=== PATIENT | male | born 1930 | race Caucasian/White ===

== ENCOUNTER 2017-07-07 13:32 | Outpatient (CLI) | payer MEDICARE, BC, OTHER ==
[2017-07-07] MEDS ORDERED: ALBUTEROL NEB 2.5 MG/3 ML INH ONE (15:00)
== END 2017-07-07 13:33 | disposition home or self-care (01) ==
LOC: RT 13:32
PROVIDERS: ATTEND Specialist
DX: J44.9 Chronic obstructive pulmonary disease, unspecified (principal)
CPT/HCPCS: 94060; 94729; 94761; J7613

== ENCOUNTER 2017-09-04 04:34 | Outpatient (CLI) | payer MEDICARE, BC | END 2017-09-04 04:35 | disposition critical access hospital (66) | LOC: EMS 04:34 | PROVIDERS: ATTEND Surgery | DX: S01.01XA Laceration without foreign body of scalp, initial encounter (principal); W01.190A Fall on same level from slipping, tripping and stumbling with subsequent striking against furniture, initial encounter; Y92.099 Unspecified place in other non-institutional residence as the place of occurrence of the external cause | CPT/HCPCS: A0425; A0429 ==

== ENCOUNTER 2017-09-04 05:00 | Emergency (ER) | payer MEDICARE, BC ==
[2017-09-04] MEDS ORDERED: LIDOCAINE 1%-EPI 1:100000 20 ML MDV SUBQ STA (05:37)
[2017-09-04] MEDS ORDERED: BACITRACIN OINT TOP STA (05:37)
--- NOTE | 2017-09-04 05:45 | CT Report ---
EXAM: CT HEAD EXAM DATE: 09/04/2017 05:28 AM. CLINICAL HISTORY: Fall, head laceration, on aspirin. COMPARISON: None. TECHNIQUE: Multiaxial CT images were obtained from the foramen magnum to the vertex. Reformats: Coron al. IV contrast: None. In accordance with CT protocol optimization, one or more of the following dose reduction techniques w ere utilized for this exam: automated exposure control, adjustment of mA and/or KV based on patient s ize, or use of iterative reconstructive technique. FINDINGS: Parenchyma: No intraparenchymal hemorrhage. No evidence of mass, midline shift, or CT findings of acu te infarction. Burt-white differentiation is distinct. Diffuse chronic microangiopathic white matter changes are evident. Extraaxial Spaces: Normal for age. No subdural or epidural collections identified. Ventricles: The ventricles and cortical sulci are enlarged, consistent with age-related tissue loss. Sinuses and orbits: Imaged paranasal sinuses, orbits, and mastoids show no significant abnormality. Bones: No evidence of fracture or calvarial defect. Other: None. IMPRESSION: Generalized age-related cortical atrophic changes without evidence of acute intracranial abnormality. [facility] Referring Provider Line: [phone] SITE ID: [id number]
--- NOTE | 2017-09-04 05:52 | ED Physician Documentation ---
PD HPI HEAD INJURY - Stated complaint Stated Complaint: GLF HEAD LAC - Chief complaint Chief Complaint: Laceration - History obtained from History obtained from: Patient, EMS - History of Present Illness Mechanism of head injury: Fell, Laceration Where head injury occurred: Home Timing - onset: Today Location of injury: Back Quality of pain: Pain Associated symptoms: No: LOC, AMS Contributing factors: Anticoagulated Similar symptoms before: Has not had sx before Recently seen: Not recently seen - Additional information Additional information: Patient is a 86 year old male who is presenting to the emergency department after falling backwards and hitting his head on a dresser. Patient states that he got up and it was dark and he tripped on his jacket falling backwards landing on a dresser hitting his head. Patient denies LOC or other injuries but is on aspirin and does have a head laceration. Review of Systems Constitutional: denies: Fever Eyes: denies: Decreased vision Ears: denies: Ear pain, Drainage/discharge Nose: denies: Epistaxis Throat: reports: Reviewed and negative Cardiac: denies: Chest pain / pressure GI: denies: Nausea, Vomiting : reports: Reviewed and negative Skin: reports: Laceration (s) Musculoskeletal: denies: Neck pain, Back pain Neurologic: reports: Head injury. denies: Generalized weakness, Focal weakness , Syncope, Confused, Altered mental status, LOC Immunocompromised: denies: Immunocompromised PD PAST MEDICAL HISTORY - Past Medical History Past Medical History: Yes Cardiovascular: Congestive heart failure, Coronary artery disease Neuro: Dementia Other Past Medical History: AAA - Past Surgical History Past Surgical History: No - Present Medications Home Medications: Ambulatory Orders Medication Instructions Recorded Confirmed Aspirin [Aspirin EC] 1 tab PO DAILY 09/04/17 DULoxetine [Cymbalta] 60 mg PO DAILY 09/04/17 Gabapentin 1 tab PO DAILY 09/04/17 Glucosamine HCl/Chondroitin Mendez 1 tab PO DAILY 09/04/17 [Endur-Flex Sr Tablet] Ipratropium/Albuterol Sulfate 1 amp INH Q6H 09/04/17 [Iprat-Albut 0.5-3(2.5) mg/3 ml] Lisinopril 1 tab PO DAILY 09/04/17 Mirtazapine 1 tab PO DAILY 09/04/17 Pantoprazole [Protonix] 1 tab PO DAILY 09/04/17 QUEtiapine [SEROquel] 1 tab PO DAILY 09/04/17 Tiotropium [place] [Spiriva] 1 tab PO DAILY 09/04/17 - Allergies Allergies/Adverse Reactions: Allergies Allergy/AdvReac Type Severity Reaction Status Date / Time Penicillins Allergy Unknown Verified 09/04/17 05:09 Sulfa (Sulfonamide Allergy Unknown Verified 09/04/17 05:09 Antibiotics) - Social History Does the pt smoke?: No Smoking Status: Never smoker Does the pt drink ETOH?: No Does the pt have substance abuse?: No - POLST Patient has POLST: No PD ED PE NORMAL - Vitals Vital signs reviewed: Yes - General General: Alert and oriented X 3, No acute distress - HEENT HEENT: PERRL, Dentition benign - Neck Neck: No bony TTP - Cardiac Cardiac: RRR - Respiratory Respiratory: No respiratory distress - Abdomen Abdomen: Soft, Non tender, Non distended - Neuro Neuro: Alert and oriented X 3, No motor deficit, No sensory deficit, Normal speech Eye Opening: Spontaneous Motor: Obeys Commands Verbal: Oriented GCS Score: 15 - Psych Psych: Normal mood PD ED PE EXPANDED - HEENT HEENT: Head injury (6cm laceration on posterior scalp) Results - Vitals Vitals: Vital Signs - 24 hr 09/04/17 05:05 Temperature 36.4 C L Heart Rate 70 Respiratory 18 Rate Blood Pressure 168/84 H O2 Saturation 99 Oxygen O2 Source Room air - Rads (name of study) ct head Radiology: Final report received (no acute intracranial patholgy) Procedures - Laceration (location) posterior scalp Length in cm: 6 Wound type: Linear Neurovascular status: Sensory intact, Vascular intact Anesthesia: Lidocaine 2% with epi Wound Preparation: Irrigated copiously NS Skin layer closure: [place] Other: Patient tolerated well, No complications, Neurovascular intact, Dressing applied Complexity: Simple PD MEDICAL DECISION MAKING - ED course Complexity details: reviewed old records, reviewed results, re-evaluated patient , considered differential, d/w patient ED course: Patient was seen and examined at bedside. Patient was sent for imaging. When patient returned his laceration was repaired as described above. Patient's ct showed no acute pathology. Patient required no further work up and was stable for discharge with outpatient follow up. Departure - Departure Disposition: 01 Home, Self Care Clinical Impression: Laceration Condition: Good Instructions: ED Laceration Scalp Stitch Or Stap Follow-Up: CHRISTOPHER CHAPMAN [Primary Care Provider] - Within 1 week Comments: You should follow up with your doctor in 7-10 days for staple removal. You should keep the wound clean and dry and was with soap and water. You can apply topical antibiotics as needed. You may return to the emergency department at any time for new, worsening or uncontrollable symptoms.
[2017-09-04 07:42] VITALS: BP 134/73
== END 2017-09-04 07:42 | disposition home or self-care (01) ==
LOC: EDUNIT# → ED 05:00
DX: S01.01XA Laceration without foreign body of scalp, initial encounter (principal); W01.190A Fall on same level from slipping, tripping and stumbling with subsequent striking against furniture, initial encounter; Y92.009 Unspecified place in unspecified non-institutional (private) residence as the place of occurrence of the external cause; F03.90 Unspecified dementia, unspecified severity, without behavioral disturbance, psychotic disturbance, mood disturbance, and anxiety; I25.10 Atherosclerotic heart disease of native coronary artery without angina pectoris; I50.9 Heart failure, unspecified; Z79.82 Long term (current) use of aspirin
CPT/HCPCS: 12002; 70450; 99283; 99284; A9270

== ENCOUNTER 2017-09-04 07:32 | Outpatient (CLI) | payer MEDICARE, BC | END 2017-09-04 07:33 | disposition home or self-care (01) | LOC: EMS 07:32 | PROVIDERS: ATTEND Surgery | DX: S01.01XA Laceration without foreign body of scalp, initial encounter (principal); W19.XXXA Unspecified fall, initial encounter | CPT/HCPCS: A0425; A0428 ==

== ENCOUNTER 2019-08-18 18:03 | Outpatient (CLI) | payer MEDICARE, BC | END 2019-08-18 18:04 | disposition critical access hospital (66) | LOC: EMS 18:03 | PROVIDERS: ATTEND Surgery | DX: M54.9 Dorsalgia, unspecified (principal); W19.XXXA Unspecified fall, initial encounter; Y92.099 Unspecified place in other non-institutional residence as the place of occurrence of the external cause | CPT/HCPCS: A0425; A0429 ==

== ENCOUNTER 2019-08-18 18:22 | Emergency (ER) | payer MEDICARE, BC ==
--- NOTE | 2019-08-18 19:08 | ED Physician Documentation ---
PD HPI MAJOR TRAUMA - Stated complaint Stated Complaint: GLF, BACK PAIN - Chief complaint Chief Complaint: Trauma Ch/Bk - History obtained from History obtained from: Patient, EMS - History of Present Illness Mechanism of injury: Fell (88-year-old gentleman with dementia comes from an assisted living facility. Reportedly was found having fallen in another person's room. Reportedly was not unconscious. Patient complains of neck pain, no other injuries. He has been ambulatory.) Review of Systems Unable to obtain: Dementia PD PAST MEDICAL HISTORY - Past Medical History Cardiovascular: Congestive heart failure, Coronary artery disease - Past Surgical History Past Surgical History: No - Present Medications Home Medications: Ambulatory Orders Medication Instructions Recorded Confirmed Aspirin [Aspirin EC] 1 tab PO DAILY 09/04/17 DULoxetine [Cymbalta] 30 mg PO DAILY 09/04/17 Ipratropium/Albuterol Sulfate 1 amp INH Q6H PRN 09/04/17 [Iprat-Albut 0.5-3(2.5) mg/3 ml] Pantoprazole [Protonix] 20 mg PO DAILY 09/04/17 QUEtiapine [SEROquel] 25 mg PO QPM 09/04/17 ALPRAZolam [Alprazolam] 0.25 mg TID PRN 08/18/19 08/18/19 Albuterol Sulf [Ventolin Hfa 2 puffs Q4H PRN 08/18/19 08/18/19 Inhaler] Metoprolol Succinate 100 mg PO DAILY 08/18/19 08/18/19 Umeclidinium Dawson [Incruse 1 puffs DAILY 08/18/19 08/18/19 Ellipta] - Allergies Allergies/Adverse Reactions: Allergies Allergy/AdvReac Type Severity Reaction Status Date / Time Penicillins Allergy Unknown Verified 08/18/19 18:28 Sulfa (Sulfonamide Allergy Unknown Verified 08/18/19 18:28 Antibiotics) - Social History Does the pt smoke?: No Smoking Status: Never smoker Does the pt drink ETOH?: No Does the pt have substance abuse?: No - POLST Patient has POLST: No PD ED PE NORMAL - Vitals Vital signs reviewed: Yes - General General: Other (He is alert and oriented to person. He can tell he is in the hospital but not why. Does not know the date or his age. Does remember that he grew up in [place].) - HEENT HEENT: PERRL, EOMI - Neck Neck: Other (Very mild low C-spine tenderness) - Cardiac Cardiac: RRR, No murmur - Respiratory Respiratory: No respiratory distress, Clear bilaterally - Abdomen Abdomen: Non tender - Back Back: No spinal TTP - Derm Derm: Normal color, Warm and dry - Extremities Extremities: No deformity, No tenderness to palpate, Normal ROM s pain, No edema, No calf tenderness / cord, Other (All extremities were palpated throughout their length and nontender with full range of motion and painless at all major joints.) - Neuro Neuro: manager review 2-12 intact, No motor deficit, No sensory deficit Eye Opening: Spontaneous Motor: Obeys Commands Verbal: Confused GCS Score: 14 Results - Vitals Vitals: Vital Signs - 24 hr 08/18/19 08/18/19 18:27 20:48 Temperature 36.1 C L Heart Rate 76 60 Respiratory 18 18 Rate Blood Pressure 183/101 H 127/101 H O2 Saturation 100 100 Oxygen O2 Source Nasal cannula - Labs Labs: Laboratory Tests 08/18/19 08/18/19 08/18/19 19:19 19:19 19:19 WBC 8.4 RBC 4.51 L Hgb 13.7 L Hct 43.1 MCV 95.6 H MCH 30.4 MCHC 31.8 L RDW 13.3 Plt Count 201 MPV 9.7 Neut # (Auto) 5.9 Lymph # (Auto) 1.6 [place] # (Auto) 0.7 Eos # (Auto) 0.2 Baso # (Auto) 0.0 Absolute Nucleated RBC 0.00 Nucleated RBC % 0.0 PT 12.3 INR 1.1 Sodium 140 Potassium 4.6 Chloride 104 Carbon Dioxide 26 Anion Gap 10.0 BUN 19 Creatinine 1.4 H Estimated GFR (MDRD) 48 L Glucose 96 Calcium 8.6 Total Bilirubin 0.8 AST 15 ALT 10 Alkaline Phosphatase 64 Total Creatine Kinase 27 Total Protein 6.9 Albumin 3.6 Globulin 3.3 Albumin/Globulin Ratio 1.1 Lipase 55 H - Rads (name of study) CT of the head and cervical spine without IV contrast Radiology: EMP read contemporaneously (NAD, DJD/DDD) PD MEDICAL DECISION MAKING - ED course ED course: 88-year-old gentleman presents after an unwitnessed fall. No clear injuries may be some mild neck trauma. Relevant imaging was negative for acute issues. I updated the daughter by phone, she is in [place], but we discussed the method of getting back home and she felt that a taxi was not appropriate, she says that because of his dementia sometimes if she stops at a stop sign he will just jump out of the car. Departure - Departure Disposition: 01 Home, Self Care Clinical Impression: Fall Qualifiers: Encounter type: initial encounter Qualified Code(s): W19.XXXA - Unspecified fall, initial encounter Dementia Qualifiers: Dementia type: unspecified type Dementia behavioral disturbance: without behavioral disturbance Qualified Code(s): F03.90 - Unspecified dementia without behavioral disturbance Neck strain Qualifiers: Encounter type: initial encounter Qualified Code(s): S16.1XXA - Strain of muscle, fascia and tendon at neck level, initial encounter Condition: Good Record reviewed to determine appropriate education?: Yes Instructions: ED Dementia Caregiver Support Comments: He was seen here today after a fall, because he cannot really give a history, because of the fall is not known. Labs were only notable for a creatinine of 1.4 prior. I do not have any old labs on him, this could be new or could be old. Needs to be monitored over time. Your blood pressure was elevated today on check into the emergency department. This does not mean that you have hypertension, it is a common phenomenon to come to the emergency department and have elevated blood pressure. I recommend that you see your primary care physician within the week to have it rechecked when you are feeling better. Discharge Date/Time: 08/18/19 22:07
[2019-08-18 19:25] LABS: BASOPHILS % (AUTO) 0.5 %; EOSINOPHILS # (AUTO) 0.2 10^3/uL (0.0-0.7); HGB - HEMOGLOBIN 13.7 g/dL (14.0-18.0); LYMPHOCYTES # (AUTO) 1.6 10^3/uL (1.5-3.5); LYMPHOCYTES % (AUTO) 18.9 %; MEAN CORPUSCULAR HEMOGLOBIN 30.4 pg (27.0-31.0); MEAN CORPUSCULAR HGB CONC 31.8 g/dL (32.0-36.0); MEAN CORPUSCULAR VOLUME 95.6 fL (80.0-94.0); MEAN PLATELET VOLUME 9.7 fL (7.4-11.4); MONOCYTES # (AUTO) 0.7 10^3/uL (0.0-1.0); MONOCYTES % (AUTO) 8.3 %; NEUTROPHILS # (AUTO) 5.9 10^3/uL (1.5-6.6); NEUTROPHILS % (AUTO) 69.9 %; PLT - PLATELET COUNT 201 10^3/uL (130-450); RED BLOOD COUNT 4.51 10^6/uL (4.70-6.10); RED CELL DISTRIBUTION WIDTH 13.3 % (12.0-15.0); WHITE BLOOD COUNT 8.4 x10^3/uL (4.8-10.8)
[2019-08-18 19:29] LABS: INR 1.1 (0.8-1.2); PT - PROTHROMBIN TIME 12.3 secs (9.9-12.6)
[2019-08-18 19:38] LABS: ALBUMIN 3.6 g/dL (3.2-5.5); ALBUMIN/GLOBULIN RATIO 1.1 (1.0-2.2); BILIRUBIN,TOTAL 0.8 mg/dL (0.2-1.0); CALCIUM 8.6 mg/dL (8.5-10.3); CREATININE 1.4 mg/dL (0.6-1.2); TOTAL PROTEIN 6.9 g/dL (6.7-8.2)
--- NOTE | 2019-08-18 20:28 | CT Report ---
Reason: fall head inj Procedure Date: 08/18/2019 Accession Number: [id number] / [id number] Procedure: CT - HEAD WO CPT Code: Final Report FULL RESULT: EXAM: CT HEAD EXAM DATE: 08/18/2019 07:42 PM. CLINICAL HISTORY: Fall, head injury. COMPARISON: HEAD W/O 09/04/2017 5:23 AM. TECHNIQUE: Multiaxial CT images were obtained from the foramen magnum to the vertex. Reformats: Sagittal and coronal. IV contrast: None. In accordance with CT protocol optimization, one or more of the following dose reduction techniques were utilized for this exam: automated exposure control, adjustment of mA and/or KV based on patient size, or use of iterative reconstructive technique. FINDINGS: Parenchyma: No intraparenchymal hemorrhage. No evidence of mass, midline shift, or CT findings of infarction. Burt-white differentiation is distinct. Extraaxial Spaces: Enlarged cortical CSF spaces. No subdural or epidural collections identified. Ventricles: Normal in size and position. Sinuses and Orbits: Imaged paranasal sinuses, orbits, and mastoids show no significant abnormality. Bones: No evidence of fracture or calvarial defect. Other: None. IMPRESSION: No acute intracranial abnormality. [facility]
--- NOTE | 2019-08-18 20:30 | CT Report ---
Reason: fall neck pain Procedure Date: 08/18/2019 Accession Number: [id number] / [id number] Procedure: CT - CERVICAL SPINE WO CPT Code: Final Report FULL RESULT: EXAM: CT CERVICAL SPINE WITHOUT CONTRAST DATE: 08/18/2019 07:42 PM. HISTORY: Fall with neck pain. COMPARISONS: None. TECHNIQUE: Thin-section axial images were acquired of the cervical spine without contrast. Post-processing: Coronal and sagittal reformats. Other: None. In accordance with CT protocol optimization, one or more of the following dose reduction techniques were utilized for this exam: automated exposure control, adjustment of mA and/or KV based on patient size, or use of iterative reconstructive technique. FINDINGS: Alignment: There is 3 mm of anterolisthesis at C2-C3. There is 2-3 mm of retrolisthesis of C3 over C4. No significant scoliosis. Bones: Negative for an acute fracture. There is multilevel degenerative disease. There are periarticular ossifications around the dens. There is soft tissue ossification adjacent to the posterior C7 spinous process. Interspace Levels/Facets: C1-C2: There is moderate joint space narrowing with periarticular calcification and spurring. C2-C3: There is moderate disk height loss with right greater than left facet joint space narrowing associated with anterolisthesis. C3-C4: Moderate to severe disk height loss with endplate sclerosis and disk osteophyte spurring causing mild central spinal canal narrowing. C4-C5: Moderate disk height loss with chronic endplate degenerative disease and disk osteophyte spurring with mild central spinal canal narrowing. C5-C6: Moderate disk height loss with disk osteophyte spurring causing mild to moderate central spinal canal narrowing. C6-C7: Moderate to severe disk height loss with endplate sclerosis and disk calcification without significant stenosis. C7-T1: Mild disk height loss. Musculature: Normal. No fatty atrophy. Other: There is moderate apical emphysema. No apical pneumothorax. Trachea is midline. IMPRESSION: 1. Negative for an acute fracture. 2. 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 There is 3 mm C2-C3 anterolisthesis and 2-3 mm C3-C4 retrolisthesis. [facility]
[2019-08-18 20:48] VITALS: BP 127/101
== END 2019-08-18 22:07 | disposition home or self-care (01) ==
LOC: EDUNIT# → ED 18:22
DX: S16.1XXA Strain of muscle, fascia and tendon at neck level, initial encounter (principal); W18.30XA Fall on same level, unspecified, initial encounter; Y92.092 Bedroom in other non-institutional residence as the place of occurrence of the external cause; F03.90 Unspecified dementia, unspecified severity, without behavioral disturbance, psychotic disturbance, mood disturbance, and anxiety; M50.31 Other cervical disc degeneration, high cervical region; I44.4 Left anterior fascicular block; R03.0 Elevated blood-pressure reading, without diagnosis of hypertension; Z79.82 Long term (current) use of aspirin
CPT/HCPCS: 36415; 70450; 72125; 80053; 82550; 83690; 85025; 85610; 93005; 99281; 99284

== ENCOUNTER 2019-09-29 11:50 | Outpatient (CLI) | payer MEDICARE, BC ==
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
== END 2019-09-29 11:51 | disposition home or self-care (01) ==
LOC: PC 11:50
PROVIDERS: ATTEND Nurse Practitioner Family
DX: Z51.5 Encounter for palliative care (principal); F03.91 Unspecified dementia, unspecified severity, with behavioral disturbance; F32.9 Major depressive disorder, single episode, unspecified; J44.9 Chronic obstructive pulmonary disease, unspecified; R53.1 Weakness; R63.4 Abnormal weight loss; I10 Essential (primary) hypertension; Z79.899 Other long term (current) drug therapy; Z79.82 Long term (current) use of aspirin; Z91.81 History of falling; Z87.891 Personal history of nicotine dependence; Z66 Do not resuscitate

== ENCOUNTER 2019-11-16 08:40 | Outpatient (CLI) | payer MEDICARE, BC ==
--- NOTE | 2019-11-16 13:01 | CONSULTATION NOTE ---
Palliative Care Follow Up - Referral Referring Provider: Dr. Ke Aguayo Time of Visit: [phone] Referral setting: Assisted living Referral Reason: Dementia with behavioral disturbances/Weight Loss - Information Sources Records reviewed: Previous records reviewed History/Review of Systems obtained from: Patient, Caregiver, Nursing Exam limitations: Clinical condition (Advanced Dementia) - History of Present Illness Update Brief HPI Update: This is an 89-year-old male who is seen and [facility] for Follow-up regarding agitation due to dementia with behavioral disturbances, weight loss, and staff concerns regarding weakness and confusion. Staff reports that patient has had fluctuations with confusion and weakness. Staff have been unable to obtain a UA dipstick for over one week. The patient is currently on quetiapine to manage his agitation and anxiety. He has had decr eased allowance of medication administration. When discussing with caregivers and medication text this seems to wax and wane depending on who is on staff. The patient obviously has preferences regarding who he is receptive for approach and who he is not. In the last 2 days patient has had improvement in his back at his baseline. In the last two days he has allowed caregiving staff to provide hygiene care. Caregiving staff reports that he has had increased stiffness in the mornings and when PRN acetaminophen has been administered they have noticed an improvement in his overall demeanor. The patient himself reports to lower back pain that does not radiate. A 4% lidocaine patch was ordered but this will be discontinued as it is not covered by insurance. The patient has had a noted weight loss since July 2019. He weighed 144.2 pounds in July 2019 and presently weighs 135.3 pounds. His daughter/D SHERWIN Mcgarry reports that the patient has always been thin and has had a "fast met abolism." He has been requested to be on meal monitoring. His oral intake will wax and wane based on his overall mood. The patient sustained a fall [place] on [place], 2019 without any known injury. He is resistant to using a walker and is unaware that he needs assistance leading to frequent falls. The patient has a history of COPD and is on supplemental oxygen. He is a former tobacco user. He often will not wear his supplemental oxygen specifically when he is out of his room. He does like to have the supplemental oxygen when for comfort and hearing the medication. Caregivers and nursing staff report that the patient is unable to use the Incruse inhaler. He does not understand that he needs to inhale the medication and is puffing. This is a once daily medication. He is ordered for as needed duo nebs and this has not been administered this month. Patient has a past medical history of hypertension, hyperlipidemia, peripheral vascular disease, coronary artery disease, AAA, angioplasty, dementia, COPD, frequent falls. Social History - Living Situation Living arrangement: Assisted living Support System: The patient reports that he grew up in [facility]. He is presently . His daughter/D SHERWIN, Geovanna ([phone]). The patient was a industrial commercial groundskeeper. He also was a longtime drinker as well as a smoker which he participated in both until [facility]. His daughter runs an [employer]. The patient also has a son, Rohit. Medications/Allergies - Medications Home Medications: Ambulatory Orders Medication Instructions Recorded Confirmed DULoxetine [Cymbalta] 30 mg PO DAILY 09/04/17 09/29/19 Ipratropium/Albuterol Sulfate 1 amp INH Q6H PRN 09/04/17 09/29/19 [Iprat-Albut 0.5-3(2.5) mg/3 ml] Pantoprazole [Protonix] 20 mg PO DAILY 09/04/17 09/29/19 QUEtiapine [SEROquel] 25 mg PO QPM 09/04/17 09/29/19 ALPRAZolam [Alprazolam] 0.25 mg TID PRN 08/18/19 09/29/19 Albuterol Sulf [Ventolin Hfa 2 puffs Q4H PRN 08/18/19 09/29/19 Inhaler] Metoprolol Succinate 100 mg PO DAILY 08/18/19 09/29/19 ALPRAZolam [Alprazolam] 0.25 mg PO BID 09/29/19 09/29/19 Acetaminophen 650 mg PO Q6H PRN MDD NTE 3g/day 09/29/19 09/29/19 Aspirin [Aspirin EC] 81 mg PO DAILY 09/29/19 09/29/19 Bisacodyl Supp [Dulcolax Supp] 1 mg FL DAILY PRN MDD Given after 09/29/19 09/29/19 MOM not effective Guaifenesin/Dextromethorphan 5 ml PO Q4H PRN 09/29/19 09/29/19 [Guaifenesin-Dm 100-10 mg/5 ml] Loperamide HCl [Loperamide] PRN MDD 4mg then 2mg after loose 09/29/19 stool Mag Hydrox/Aluminum Hyd/Simeth 20 ml PO TID PRN 09/29/19 09/29/19 [Antacid Plus Gas Relief Liquid] Magnesium Hydroxide [Milk of 30 ml PO DAILY PRN MDD No BM in 3 09/29/19 09/29/19 Magnesia] days QUEtiapine [SEROquel] 25 mg PO QDBREAKFAST 09/29/19 09/29/19 Acetaminophen 650 mg PO QDBREAKFAST 11/16/19 11/16/19 - Allergies Allergies/Adverse Reactions: Allergies Allergy/AdvReac Type Severity Reaction Status Date / Time Penicillins Allergy Unknown Verified 09/29/19 20:34 Sulfa (Sulfonamide Allergy Unknown Verified 09/29/19 20:34 Antibiotics) Review of Systems - Constitutional Constitutional: reports: Weight loss (weight 135.3lb; weight 144.2lb in Jul 2019). denies: Fever - Eyes Eyes: denies: Corrective lenses - Ears, Nose & Throat Ears, Nose & Throat: reports: Hearing loss. denies: Dry mouth - Cardiovascular Cardiovascular: denies: Chest pain, Edema - Respiratory Respiratory: reports: Other (COPD). denies: Cough, Wheezing - Gastrointestinal Gastrointestinal: reports: Other (Appetite waxes and wanes). denies: Abdominal pain, Constipation, Diarrhea, Vomiting - Genitourinary Genitourinary: reports: Incontinence (intermittent). denies: Dysuria - Musculoskeletal Musculoskeletal: reports: Back pain. denies: Joint swelling - Integumentary Integumentary: denies: Rash - Neurological Neurological: reports: General weakness, Memory problems - Psychiatric Psychiatric: reports: Depression, Behavior disturbances - Hematologic/Lymphatic Hematologic/Lymphatic: reports: Recurrent infections (UTI) - All Other Systems All Other Systems: reports: Reviewed and negative Physical Exam - Vital Signs Temperature: 36.7 C Pulse Rate: 63 O2 Saturation: 90 (on RA) Blood Pressure: 123/89 (left wrist cuff) - Physical Exam General Appearance: positive: No acute distress, Alert, Other (sitting up, consuming breakfast, thin frail elderly man) Eyes Bilateral: positive: Normal inspection ENT: positive: No signs of dehydration Neck: positive: No JVD, Trachea midline Cardiovascular: positive: Regular rate & rhythm, No murmur Respiratory: positive: No respiratory distress, Breath sounds nml. negative: Rales, Rhonchi Abdomen: positive: Non-tender, Soft, Nml bowel sounds Skin: positive: Dryness, Other (resolving scab to right forearm) Extremities: positive: No pedal edema, Other (Tender to palpation lumba-sacral aspect along spine) Neurologic/Psychiatric: positive: Disoriented to place, Disoriented to time, Weakness, Flat affect, Other (soft spoken) Palliative Care - POLST Patient has POLST: Yes POLST Status: DNR, Comfort Measures Pain: Pain worsening (noted stiffness by staff and lower back pain reported by patient that has responded to PRN tylenol administration) Anorexia: Mild (1-3), Weight loss Constipation: No Performance Status: Patient is able to ambulate with assistance but refuses a walker. He has frequent falls. Will intermittently refuse general hygiene care such as Showers and incontinence care. Overall he is continent of bowel and bladder. He is able to self feed. PPS score 50% - Palliative Care Discussion: The patient has a history of dementia with behavioral disturbances particularly on agitation, aggression, and depression. He appears to have established better reported relationships with certain staff members at [facility]. When those staff members are caring for him that he trusts he is receptive to medication administration otherwise he will refuse medications as well as care. The patient himself is unaware of his limitations and will ambulate without an assistive device. He is adamant in refusing to use a walker or cane. The patient has always been particular in his way of doing things. The patient has had some fluctuations in confusion that does not seem indicative of a urinary tract infection and this was reviewed with caregiving staff. He has had weight loss with fluctuations in his appetite. His daughter wishes to focus on comfort measures. Impression and Recommendations - Palliative Care Impression: This is a frail 89-year-old man with a history of moderate to advanced dementia with behavioral disturbances, depression, and history of frequent falls. He has periods of confusion, weakness, and combative behavior. Presently he is calm and agreeable. He has had some noted stiffness and lower back pain that has re sponded to Tylenol. Palliative care to continue to build rapport, address symptom management, and anticipatory guidance. Recommendations/Counseling Done: 1. Dementia with behavioral disturbances. Patient has a lifelong history of a temper according to his daughter/Vaughn COURTNEY previously. He continues to have intermittent episodes of agitation and outbursts. Increase quetiapine to 25 mg twice daily for anxiety and agitation and after review of purpose and side effects daughter/D SHERWIN is in agreement. Continue alprazolam 0.25 mg twice daily. Strongly encouraged staff that they may administer her alprazolam that is available as needed when the patient is showing signs of agitation with understanding verbalized. Staff to continue to redirect behaviors as needed. Reviewed signs of disease progression with daughter in relation to dementia. Continue to monitor and adjust medication regimen as needed based on symptom response. 2. Lower back pain. Likely arthritic in nature. D/c salonpras patch as insurance will not cover. Initiate acetaminophen 650 mg p.o. every morning for back pain as this is been effective. Continue as needed acetaminophen. Adjust pain regimen as needed. 3. COPD. Longstanding history of tobacco use. No recent history of COPD exacerbation. Has supplemental oxygen and has routine monitoring of his pulse oximetry. He will not wear his supplemental oxygen outside of his room. He is unable to understand administration of his Incruse ellopta inhaler. Will discontinue Incruse ellopta inhaler. Continue as needed DuoNeb and Ventolin HFA as needed. If needed can schedule standing duo nebs based on patient's symptomatology. Continue to monitor. 4. Weight loss With protein calorie malnutrition. Multifactorial and due to adv ancement of patient's dementia. Continue weekly weights x8 weeks as ordered to monitor weight trends. Initiate 1 can of Ensure to be provided if the patient consumes less than 50% of each meal. Continue to monitor. 5. Frequent falls. Last fall with ER visit in August 2019. Patient has resistant to the use of any assistive devices despite encouragement. Falls unavoidable due to dementia and due to present disease progression. Continue to in encouraged to call for assistance. 6. Advanced care planning. Patient has POLST in place as DN AR with comfort measures. Palliative care to continue to build rapport and explore goals of care further. Daughter/D SHERWIN Lizama wishes for her father to be comfortable. Time Spent: CPT 77076 POC reviewed with daughter/DPOA Alda via phone regarding disease progression, pain management, coordination of care and medication management with questions answered and addressed. Disclaimer: The chart note was formulated using voice recognition technology and unfortunately sound alike errors may occur.
== END 2019-11-16 08:41 | disposition home or self-care (01) ==
LOC: PC 08:40
PROVIDERS: ATTEND Nurse Practitioner Family
DX: Z51.5 Encounter for palliative care (principal); F03.91 Unspecified dementia, unspecified severity, with behavioral disturbance; R53.1 Weakness; J44.9 Chronic obstructive pulmonary disease, unspecified; R63.4 Abnormal weight loss; E46 Unspecified protein-calorie malnutrition; M54.5 Low back pain; Z79.899 Other long term (current) drug therapy; Z79.82 Long term (current) use of aspirin; Z99.81 Dependence on supplemental oxygen; Z91.81 History of falling; Z87.891 Personal history of nicotine dependence; Z66 Do not resuscitate

== ENCOUNTER 2019-11-22 08:51 | Outpatient (CLI) | payer MEDICARE, BC | END 2019-11-22 08:52 | disposition critical access hospital (66) | LOC: EMS 08:51 | PROVIDERS: ATTEND Surgery | DX: M25.551 Pain in right hip (principal); W19.XXXA Unspecified fall, initial encounter; Y92.099 Unspecified place in other non-institutional residence as the place of occurrence of the external cause | CPT/HCPCS: A0425; A0429 ==

== ENCOUNTER 2019-11-22 09:09 | Inpatient (IN) | payer MEDICARE, BC ==
--- NOTE | 2019-11-22 09:30 | ED Physician Documentation ---
PD HPI LOWER EXT INJURY - Stated complaint Stated Complaint: KNEE/HIP PX - History obtained from History obtained from: Patient - History of Present Illness PD HPI LOW EXT INJURY LOCATION: Right, Hip Type of injury: Fall Where injury occurred: Other ([facility] unit. Had unwitnessed fall 2 days ago with some pains with walking, which worsened last night and he would not walk on it today. No noted headache/ chest pains. Not on blood thinners.) Timing - onset: How many days ago (2) Timing - duration: Days (2) Timing - details: Abrupt onset, Still present (worse pain and not moving it.) Worsened by: Moving, Palpating Associated symptoms: No: Weakness, Numbness Contributing factors: No: Prior ortho surgery Similar symptoms before: Has not had sx before Review of Systems Unable to obtain: Dementia, Other (report from SNF nursing notes) Constitutional: denies: Fever, Chills Cardiac: denies: Chest pain / pressure Respiratory: denies: Cough GI: denies: Nausea, Vomiting, Diarrhea Neurologic: reports: Confused (baseline dementia). denies: Focal weakness, Altered mental status, Headache PD PAST MEDICAL HISTORY - Past Medical History Cardiovascular: Congestive heart failure, Hypertension, High cholesterol, Coronary artery disease, Peripheral Vascular Disease, Other (AAA) Respiratory: COPD Neuro: Dementia, Peripheral neuropathy Endocrine/Autoimmune: None GI: GERD : None Psych: Depression Musculoskeletal: None - Past Surgical History Past Surgical History: No Cardiovascular: Angioplasty (?angioplasty in the past per daughter/DPOA) - Present Medications Home Medications: Ambulatory Orders Medication Instructions Recorded Confirmed DULoxetine [Cymbalta] 30 mg PO DAILY 09/04/17 11/22/19 Ipratropium/Albuterol Sulfate 1 amp INH Q6H PRN 09/04/17 11/22/19 [Iprat-Albut 0.5-3(2.5) mg/3 ml] ALPRAZolam [Alprazolam] 0.25 mg TID PRN 08/18/19 11/22/19 Albuterol Sulf [Ventolin Hfa 2 puffs INH Q4H PRN 08/18/19 11/22/19 Inhaler] Metoprolol Succinate 100 mg PO DAILY 08/18/19 11/22/19 ALPRAZolam [Alprazolam] 0.25 mg PO BID 09/29/19 11/22/19 Acetaminophen 650 mg PO Q6H PRN MDD NTE 3g/day 09/29/19 11/22/19 Aspirin [Aspirin EC] 81 mg PO DAILY 09/29/19 11/22/19 Bisacodyl Supp [Dulcolax Supp] 10 mg CA DAILY PRN MDD Given after 09/29/19 11/22/19 MOM not effective Guaifenesin/Dextromethorphan 5 ml PO Q4H PRN 09/29/19 11/22/19 [Guaifenesin-Dm 100-10 mg/5 ml] Loperamide HCl [Loperamide] 2 mg PO PRN PRN MDD 4mg then 2mg 09/29/19 11/22/19 each loose stool Mag Hydrox/Aluminum Hyd/Simeth 20 ml PO TID PRN 09/29/19 11/22/19 [Antacid Plus Gas Relief Liquid] Magnesium Hydroxide [Milk of 30 ml PO DAILY PRN MDD No BM in 3 09/29/19 11/22/19 Magnesia] days QUEtiapine [SEROquel] 25 mg PO BID 09/29/19 11/22/19 Acetaminophen 650 mg PO DAILY 11/16/19 11/22/19 Pantoprazole Sodium 20 mg PO DAILY 11/22/19 11/22/19 - Allergies Allergies/Adverse Reactions: Allergies Allergy/AdvReac Type Severity Reaction Status Date / Time Penicillins Allergy Unknown Verified 11/22/19 09:29 Sulfa (Sulfonamide Allergy Unknown Verified 11/22/19 09:29 Antibiotics) - Social History Does the pt smoke?: No Smoking Status: Never smoker Does the pt drink ETOH?: No Does the pt have substance abuse?: No - POLST Patient has POLST: Yes PD ED PE NORMAL - Vitals Vital signs reviewed: Yes - General General: Well developed/nourished. No: Alert and oriented X 3 (to person, otherwise does follow commands and waves back when I wave to him. ) - HEENT HEENT: Atraumatic, Pharynx benign - Neck Neck: Supple, no meningeal sign, No bony TTP, No adenopathy - Cardiac Cardiac: RRR, No murmur - Respiratory Respiratory: Clear bilaterally, Other (no chestwall tenderness) - Abdomen Abdomen: Soft, Non tender - Back Back: No spinal TTP - Derm Derm: Normal color, Warm and dry - Extremities Extremities: Other (right hip tender to palpation and pain with attempted minor rotational movement. ) - Neuro Neuro: No motor deficit, No sensory deficit, Other (good pulses and cap refill in foot/toes. ). No: Alert and oriented X 3 Eye Opening: Spontaneous Motor: Obeys Commands Verbal: Confused GCS Score: 14 Results - Vitals Vitals: Vital Signs - 24 hr 11/22/19 11/22/19 11/22/19 09:10 10:00 11:30 Temperature 36.5 C Heart Rate 67 59 L 85 Respiratory 19 17 25 H Rate Blood Pressure 159/105 H 171/97 H 115/92 H O2 Saturation 100 100 100 Oxygen O2 Source Room air - Labs Labs: Laboratory Tests 11/22/19 11/22/19 11/22/19 09:46 09:46 09:46 WBC 11.1 H RBC 4.10 L Hgb 12.7 L Hct 39.4 L MCV 96.1 H MCH 31.0 MCHC 32.2 RDW 13.8 Plt Count 190 MPV 9.8 Neut # (Auto) 8.6 H Lymph # (Auto) 1.1 L Kay # (Auto) 1.1 H Eos # (Auto) 0.2 Baso # (Auto) 0.0 Absolute Nucleated RBC 0.00 Nucleated RBC % 0.0 PT 15.5 H INR 1.4 H Sodium 143 Potassium 4.5 Chloride 107 Carbon Dioxide 28 Anion Gap 8.0 BUN 42 H Creatinine 1.7 H Estimated GFR (MDRD) 38 L Glucose 108 H Calcium 9.0 Magnesium 2.1 Total Bilirubin 0.8 AST 23 ALT 16 Alkaline Phosphatase 106 Total Protein 7.2 Albumin 3.4 Globulin 3.8 Albumin/Globulin Ratio 0.9 L Lipase 54 H - Rads (name of study) chest xray Radiology: Prelim report reviewed (no acute process), See rad report right hip Radiology: Prelim report reviewed (femoral neck fracture), See rad report PD MEDICAL DECISION MAKING - ED course Complexity details: reviewed old records, reviewed results, considered d ifferential, d/w patient, d/w family (I talked with his daughter who is POA, who decides on surgical treatment, given that he is usually ambulatory and would not do well bed confined. With emphasis on comfort and quality of his activity and life. ), d/w devops consultant (S/W Dr. Bazzi, who will consult on the patient. S/W Hospitalist who will admit the patient. ) Departure - Departure Disposition: 66 [facility] DC/Xfer Clinical Impression: Femoral neck fracture Qualifiers: Encounter type: initial encounter Fracture type: closed Laterality: right Qualified Code(s): S72.001A - Fracture of unspecified part of neck of right femur, initial encounter for closed fracture Chronic dementia Qualifiers: Dementia behavioral disturbance: without behavioral disturbance Qualified Code(s): F03.90 - Unspecified dementia without behavioral disturbance Condition: Stable Discharge Date/Time: 11/22/19 13:16
[2019-11-22 09:52] LABS: BASOPHILS % (AUTO) 0.4 %; EOSINOPHILS # (AUTO) 0.2 10^3/uL (0.0-0.7); HGB - HEMOGLOBIN 12.7 g/dL (14.0-18.0); LYMPHOCYTES # (AUTO) 1.1 10^3/uL (1.5-3.5); LYMPHOCYTES % (AUTO) 10.3 %; MEAN CORPUSCULAR HGB CONC 32.2 g/dL (32.0-36.0); MEAN CORPUSCULAR VOLUME 96.1 fL (80.0-94.0); MEAN PLATELET VOLUME 9.8 fL (7.4-11.4); MONOCYTES # (AUTO) 1.1 10^3/uL (0.0-1.0); MONOCYTES % (AUTO) 9.6 %; NEUTROPHILS # (AUTO) 8.6 10^3/uL (1.5-6.6); NEUTROPHILS % (AUTO) 77.3 %; PLT - PLATELET COUNT 190 10^3/uL (130-450); RED CELL DISTRIBUTION WIDTH 13.8 % (12.0-15.0); WHITE BLOOD COUNT 11.1 x10^3/uL (4.8-10.8)
--- NOTE | 2019-11-22 10:00 | XRAY Report ---
Reason: fall with pain Procedure Date: 11/22/2019 Accession Number: [id number] / [id number] Procedure: XR - Hip w/Pelvis 2-3V RT CPT Code: Final Report FULL RESULT: EXAM: RIGHT HIP RADIOGRAPHY EXAM DATE: 11/22/2019 09:22 AM. CLINICAL HISTORY: Fall today with right hip pain. COMPARISON: None. TECHNIQUE: 2 views. FINDINGS: Bones: There is an acute fracture of the right femoral neck. There is mild proximal displacement of the distal fragment. The other visualized bones are intact. No bone lesion. Joints: No dislocation or subluxation. There is mild joint space narrowing of the bilateral hips. Soft Tissues: Bilateral iliac artery stents are present. There are multiple surgical clips in the pelvis. The visualized bowel gas pattern is nonobstructive. IMPRESSION: Acute fracture of the right femoral neck. RADIA
--- NOTE | 2019-11-22 10:05 | XRAY Report ---
Reason: fall Procedure Date: 11/22/2019 Accession Number: [id number] / [id number] Procedure: XR - Chest 1 View X-Ray CPT Code: 23913 Final Report FULL RESULT: EXAM: CHEST RADIOGRAPHY EXAM DATE: 11/22/2019 09:19 AM. CLINICAL HISTORY: Right hip pain status post fall today. COMPARISON: None. TECHNIQUE: 1 view. FINDINGS: Lungs/Pleura: No focal opacities evident. No pleural effusion. No pneumothorax. Mediastinum: Within exam limitations, the cardiomediastinal contour is normal. Other: None. IMPRESSION: Normal single view chest. RADIA
[2019-11-22 10:10] LABS: ALBUMIN 3.4 g/dL (3.2-5.5); ALBUMIN/GLOBULIN RATIO 0.9 (1.0-2.2); BILIRUBIN,TOTAL 0.8 mg/dL (0.2-1.0); CREATININE 1.7 mg/dL (0.6-1.2); MAGNESIUM 2.1 mg/dL (1.7-2.8); TOTAL PROTEIN 7.2 g/dL (6.7-8.2)
[2019-11-22] MEDS ORDERED: SODIUM CHLORIDE 0.9% 1,000 ML IV STA (11:05)
[2019-11-22] MEDS ORDERED: MORPHINE 2 MG/ML CARPUJECT IVP STA (11:05)
[2019-11-22] MEDS ORDERED: LACTATED RINGERS 1,000 ML IV STA (11:25)
[2019-11-22] MEDS ORDERED: HALOPERIDOL 5 MG/ML VIAL IVP STA (11:30)
[2019-11-22] MEDS ORDERED: ONDANSETRON 4 MG/2 ML VIAL IVP PRN (11:51)
[2019-11-22] MEDS ORDERED: oxyCODONE 5 MG TABLET PO PRN (11:51)
[2019-11-22] MEDS ORDERED: ACETAMINOPHEN 325 MG TABLET PO PRN (11:51)
[2019-11-22] MEDS ORDERED: MAGNESIUM HYDROXIDE 2,400 MG/30 ML UDC PO PRN (12:01)
[2019-11-22] MEDS ORDERED: ALPRAZolam 0.25 MG TABLET PO PRN (12:01)
[2019-11-22] MEDS ORDERED: guaiFENesin/DEXTROMETHORPHAN 10 ML UDC PO PRN (12:01)
[2019-11-22] MEDS ORDERED: BISACODYL 10 MG SUPP PR PRN (12:01)
[2019-11-22] MEDS ORDERED: MAG HYDROX/AL HYDROX/SIMETH 30 ML UDC PO PRN (12:01)
[2019-11-22] MEDS ORDERED: ALBUTEROL NEB 2.5 MG/3 ML INH PRN (12:03)
[2019-11-22] MEDS ORDERED: IPRATROPIUM/ALBUTEROL 3 ML NEB INH PRN (12:03)
--- NOTE | 2019-11-22 12:05 | HISTORY & PHYSICAL EXAMINATION ---
Chief Complaint - Chief Complaint Chief Complaint: fall and injury History of Present Illness - History Obtained From Exam Limitations: advanced dementia, medicated by ER - History of Present Illness HPI Comment/Other: Mr. Camacho is a 89-yrs old male with a past medical history of hypertension, hyperlipidemia, peripheral vascular disease, CHF, coronary artery disease, AAA, angioplasty, advanced dementia with disturbance behaviours, COPD, frequent falls, who present ER for fall and right hip pain. pt was medicated by ER and fall in sleep. Also pt has hx of advanced dementia, could not provide medical history. I tried to reach pt's family Priyank Sierra at [phone] twice and left message but could not get call back. Per ER's report, Pt brought in by EMS for Righ hip pain. pt presented ER with right Hip tender on palpitation, and wincing in pain. Pt hx of dementia. Pt had unwitnessed fall Thursday at [facility], Staff in [facility] reported they heard he yell out. EMS reports [facility] staff does not believe pt lost of conscience when he had a fall. Xray of right hip reveals acute fracture of the right femoral neck. Orthopedics surgeon was called by ER, plan to have surgery on tomorrow. Pt had PLOST which state DNR/DNI and comfort-focus measure. History - Past Medical History Cardiovascular: reports: Congestive heart failure, Hypertension, High cholesterol, Coronary artery disease, Peripheral Vascular Disease, Other Respiratory: reports: COPD Neuro: reports: Dementia, Peripheral neuropathy Endocrine/Autoimmune: reports: None GI: reports: GERD : reports: None Psych: reports: Depression Musculoskeletal: reports: None MRSA Hx?: No Other Past Medical History: AAA - Past Surgical History Cardiovascular: reports: Angioplasty - Family & Social History Family History: Mother: , Father: Family History Comment/Other: pt can not provide family medical history because his advanced dementia Social History Notes: pt can not provide social history because his advanced dementia - Substance History Use: Uses substance without health or social issues: Tobacco (History of tobacco abuse until moved into [facility] in 2017), Alcohol (History of alochol use until resided at [facility] in 2017--would consume scotch or burbon.) - POLST Patient has POLST: Yes Meds/Allgy - Home Medications Home Medications: Ambulatory Orders Medication Instructions Recorded Confirmed DULoxetine [Cymbalta] 30 mg PO DAILY 09/04/17 11/22/19 Ipratropium/Albuterol Sulfate 1 amp INH Q6H PRN 09/04/17 11/22/19 [Iprat-Albut 0.5-3(2.5) mg/3 ml] ALPRAZolam [Alprazolam] 0.25 mg TID PRN 08/18/19 11/22/19 Albuterol Sulf [Ventolin Hfa 2 puffs INH Q4H PRN 08/18/19 11/22/19 Inhaler] Metoprolol Succinate 100 mg PO DAILY 08/18/19 11/22/19 ALPRAZolam [Alprazolam] 0.25 mg PO BID 09/29/19 11/22/19 Acetaminophen 650 mg PO Q6H PRN MDD NTE 3g/day 09/29/19 11/22/19 Aspirin [Aspirin EC] 81 mg PO DAILY 09/29/19 11/22/19 Bisacodyl Supp [Dulcolax Supp] 10 mg PA DAILY PRN MDD Given after 09/29/1911/03 MOM not effective Guaifenesin/Dextromethorphan 5 ml PO Q4H PRN 09/29/19 11/22/19 [Guaifenesin-Dm 100-10 mg/5 ml] Loperamide HCl [Loperamide] 2 mg PO PRN PRN MDD 4mg then 2mg 09/29/19 11/22/19 each loose stool Mag Hydrox/Aluminum Hyd/Simeth 20 ml PO TID PRN 09/29/19 11/22/19 [Antacid Plus Gas Relief Liquid] Magnesium Hydroxide [Milk of 30 ml PO DAILY PRN MDD No BM in 3 09/29/19 11/22/19 Magnesia] days QUEtiapine [SEROquel] 25 mg PO BID 09/29/19 11/22/19 Acetaminophen 650 mg PO DAILY 11/16/19 11/22/19 Pantoprazole Sodium 20 mg PO DAILY 11/22/19 11/22/19 - Allergies Allergies/Adverse Reactions: Allergies Allergy/AdvReac Type Severity Reaction Status Date / Time Penicillins Allergy Unknown Verified 11/22/19 09:29 Sulfa (Sulfonamide Allergy Unknown Verified 11/22/19 09:29 Antibiotics) Review of Systems - All Other Systems All Other Systems: reports: Other (pt can not provide ROS because of his advanced dementia) Exam - Vital Signs Vital Signs: Vital Signs x48h Temp Pulse Resp BP Pulse Ox 11/22/19 11:30 85 25 H 115/92 H 100 11/22/19 10:00 59 L 17 171/97 H 100 11/22/19 09:10 36.5 C 67 19 159/105 H 100 - Physical Exam General Appearance: positive: No acute distress, Alert. negative: Lethargic Eyes Bilateral: positive: Normal inspection, PERRL, No lid inflammation ENT: positive: ENT inspection nml, Pharynx nml, No signs of dehydration. negative: Purulent nasal drainage Neck: positive: Nml inspection, Thyroid nml, No JVD, Trachea midline. negative: Thyromegaly, Stiff neck, Tracheal deviation Respiratory: positive: Chest non-tender, No respiratory distress, Breath sounds nml, Wheezes, Rales, Rhonchi Cardiovascular: positive: No murmur, No gallop. negative: Tachycardia, Bradycardia, Systolic murmur, Diastolic murmur Peripheral Pulses: positive: 2+ Abdomen: positive: Non-tender, No organomegaly, Nml bowel sounds, No distention. negative: Tenderness, Guarding, Rebound Back: positive: Nml inspection Skin: positive: Color nml, No rash, Warm, Dry. negative: Cyanosis, Diaphoresis, Pallor, Skin rash Extremities: positive: Non-tender, Nml appearance. negative: Calf tenderness, Stan's sign/cords Neurologic/Psychiatric: negative: Weakness, Sensory loss, Facial droop Sepsis Event Note (H) - Evaluation Current Stage of Sepsis: Ruled out Conclusion/Plan - Problem List (1) Femoral neck fracture Conclusion/Plan: Patient had no-witness fall, then patient complain right hip pain. Xray of right hip review Accu fracture,Also. The surgeon was consulted and planning patient have surgery on tomorrow. pre-op assessment using the Revised Cardiac Risk Index is 6.6 %, moderate Risk plan: consult with orthopedics surgeon, order ECHO prior To the surgery, Discussed with the surgeon for care plan, patient also on the EKG. Orthopedics surgeon discussed her with the family patient DPOA, DPOA want to continue have surgery for patient. plan the surgery on tomorrow, n.p.o. after midnight, intravenous IVF, pain control, Qualifiers: Encounter type: initial encounter Fracture type: closed Laterality: right Qualified Code(s): S72.001A - Fracture of unspecified part of neck of right femur, initial encounter for closed fracture (2) Advanced dementia Conclusion/Plan: Patient has a history of advanced dementia, we will continue to discuss with care plan with the DPOA, will continue the nursing support, (3) HTN (hypertension) Conclusion/Plan: Patient has slightly elevated blood pressure. Continue home metoprolol, and hydralazine as needed, (4) Hx of coronary artery disease Conclusion/Plan: Patient has history of CAD, will order echo to check the patient before the surgery, continue patient home aspirin, continue home medication metoprolol,Continue [employer] senior [employer] patient, continue vital signs check the patient, (5) COPD (chronic obstructive pulmonary disease) Conclusion/Plan: Stable, continue breathing treatment as needed, (6) ARGELIA (acute kidney injury) Conclusion/Plan: Patient has increased creatinine from 1.4 to 1.7, patient is likely secondary to dehydration, hydration with intravenous IV fluids, continue lab test monitor patient, - Lab Results Fish Bones: 11/22/19 09:46 11/22/19 09:46 Core Measures - Anticipated LOS I expect patient to be DC'd or transferred within 96 hours.: Yes - DVT/VTE - Prophylaxis VTE/DVT Device ordered at admit?: Yes VTE/DVT Prophylaxis med ordered at admit?: Yes
[2019-11-22 12:14] LABS: INR 1.4 (0.8-1.2); PT - PROTHROMBIN TIME 15.5 secs (9.9-12.6)
[2019-11-22] MEDS: SODIUM CHLORIDE FLUSH 0.9% 10 ML SYRINGE IVP PRN ×2 (15:04→18:36)
[2019-11-22] MEDS: SODIUM CHLORIDE 0.9% 1,000 ML IV SCH (15:05)
--- NOTE | 2019-11-22 15:25 | PHARMACY PROGRESS NOTE ---
- Best Possible Medication History Admit Date and Time: 11/22/19 1151 Processed by: Pharmacy Medication History completed: Yes Patient Interview: Pt unable to participate Secondary Source(s): Facility MAR as ONLY source As the person ultimately responsible for medication therapy, providers are able to order a medication from an existing home medication list in [facility] via the "Reconcile Routine" prior to Confirmation of that medication by information support project manager. Such practice is discouraged except when the physician, in their clinical judgment, deems that a medical need exists for a medication without regard to previous use.
[2019-11-22] MEDS ORDERED: ceFAZolin 2 GM in SODIUM CHLORIDE 0.9% 100ML 100 ML IV ONE (18:00)
[2019-11-22] MEDS: SODIUM CHLORIDE FLUSH 0.9% 10 ML SYRINGE IVP SCH (18:32)
--- NOTE | 2019-11-22 18:32 | CONSULTATION NOTE ---
DATE OF SERVICE: 11/22/2019 Physician: Rodríguez Bazzi MD REFERRING PHYSICIAN: GEOVANNI Milian, hospitalist service at [facility]. CHIEF COMPLAINT: "Painful right hip." HISTORY OF PRESENT ILLNESS: Patient is an 89-year-old male, a resident of an [facility], who apparently was noted to have painful gait on the right side for the past 24 hours or so. There was no witnessed fall, but they were fearful that he may have injured his leg. He was ta hakan to the Emergency Room here at [facility], where x-rays showed a displaced right fem oral neck fracture. No other associated injuries are noted. The patient is somewhat demented and wa s a poor historian. PHYSICAL EXAMINATION: On exam today, patient's right leg shows some painful hip range of motion. Escalante s some tenderness on palpation around the lateral aspect of the right hip as well. Right leg itself appeared to be slightly shortened and externally rotated. The patient voluntarily moves his toes and ankle with some discomfort. Reacts well to light touch. Has cool extremities bilaterally, but has a 2+ posterior tibialis pulse on the right side. IMAGING: Review of x-rays that were taken of the right hip shows a somewhat shortened and comminuted displaced right femoral neck fracture. ASSESSMENT: 1. Closed displaced right femoral neck hip fracture. 2. Dementia. PLAN: The patient was admitted to the medical service through Emergency Room service. After medical stabilization, we will proceed to the operating room Thursday morning to proceed with a press fit c ementless right bipolar hip endoprosthesis. I have spoken to the patient, as well as to his daughter , who has the power of molder machine. Risks and benefits of surgery were explained. Risks include anesth esia risks, blood loss, nerve damage, new fractures, hip dislocation, deep venous thrombosis, pulmona ry embolus, etc. They appeared to understand the risks involved with doing the surgery and wishes to proceed as planned. The leg will be marked. The consent was signed by telephone after discussion a nd question answering with the patient's power of molder machine with the nurse witnessing. TD: 11/22/2019 18:08
[2019-11-22] MEDS: MORPHINE 2 MG/ML CARPUJECT IVP PRN ×2 (18:35→22:36)
[2019-11-22] MEDS: QUEtiapine 25 MG TABLET PO SCH (22:22)
[2019-11-22] MEDS: FAMOTIDINE 20 MG TABLET PO SCH (22:23)
[2019-11-22] MEDS: ALPRAZolam 0.25 MG TABLET PO SCH (22:23)
[2019-11-22] MEDS: HEPARIN 5,000 UNIT/ML VIAL SUBQ SCH (22:27)
[2019-11-23] MEDS: SODIUM CHLORIDE FLUSH 0.9% 10 ML SYRINGE IVP SCH ×4 (01:11→23:50)
[2019-11-23] MEDS: SODIUM CHLORIDE 0.9% 1,000 ML IV SCH ×2 (01:19→17:06)
[2019-11-23] MEDS: MORPHINE 2 MG/ML CARPUJECT IVP PRN ×4 (06:30→23:58)
[2019-11-23] MEDS: hydrALAZINE INJ 20 MG/ML VIAL IVP PRN (09:00)
[2019-11-23] MEDS ORDERED: ceFAZolin 2 GM in SODIUM CHLORIDE 0.9% 100ML 100 ML IV ONE (09:30)
[2019-11-23] MEDS: METOPROLOL SUCCINATE 50 MG TABLET PO SCH (10:21)
[2019-11-23] MEDS: QUEtiapine 25 MG TABLET PO SCH ×3 (10:21→21:51)
[2019-11-23] MEDS: HEPARIN 5,000 UNIT/ML VIAL SUBQ SCH ×2 (10:22→20:27)
[2019-11-23] MEDS: DULoxetine 30 MG CAPSULE PO SCH (10:22)
[2019-11-23] MEDS: ASPIRIN EC 81 MG TABLET PO SCH (10:22)
[2019-11-23] MEDS: ALPRAZolam 0.25 MG TABLET PO SCH ×3 (10:23→21:51)
[2019-11-23] MEDS: SODIUM CHLORIDE FLUSH 0.9% 10 ML SYRINGE IVP PRN (10:27)
[2019-11-23 10:45] LABS: BASOPHILS % (AUTO) 0.2 %; EOSINOPHILS # (AUTO) 0.1 10^3/uL (0.0-0.7); EOSINOPHILS % (AUTO) 0.7 %; HGB - HEMOGLOBIN 11.9 g/dL (14.0-18.0); LYMPHOCYTES # (AUTO) 1.2 10^3/uL (1.5-3.5); LYMPHOCYTES % (AUTO) 14.1 %; MEAN CORPUSCULAR HEMOGLOBIN 30.7 pg (27.0-31.0); MEAN CORPUSCULAR HGB CONC 31.5 g/dL (32.0-36.0); MEAN CORPUSCULAR VOLUME 97.7 fL (80.0-94.0); MEAN PLATELET VOLUME 9.7 fL (7.4-11.4); MONOCYTES # (AUTO) 0.8 10^3/uL (0.0-1.0); MONOCYTES % (AUTO) 9.7 %; NEUTROPHILS # (AUTO) 6.1 10^3/uL (1.5-6.6); NEUTROPHILS % (AUTO) 74.8 %; PLT - PLATELET COUNT 184 10^3/uL (130-450); RED BLOOD COUNT 3.87 10^6/uL (4.70-6.10); RED CELL DISTRIBUTION WIDTH 13.8 % (12.0-15.0); WHITE BLOOD COUNT 8.2 x10^3/uL (4.8-10.8)
[2019-11-23 10:55] LABS: CALCIUM 8.4 mg/dL (8.5-10.3); CREATININE 1.3 mg/dL (0.6-1.2)
--- NOTE | 2019-11-23 11:25 | ANESTHESIA ---
Pre-Anesthesia VS, & Labs - Diagnosis hip fracture - Procedure Hip ORIF Vital Signs: Temp Pulse Resp BP Pulse Ox 36.8 C 80 17 153/88 H 100 11/23/19 07:34 11/23/19 09:05 11/23/19 07:34 11/23/19 09:30 11/23/19 07:34 Height 5 ft 10 in Weight (kg) 72.5 kg Body Mass Index 22.9 - NPO >8 hours - Lab Results Current Lab Results: Laboratory Tests 11/23/19 10:37: Sodium 143, Potassium 4.2, Chloride 112 H, Carbon Dioxide 23, Anion Gap 8.0, BUN 29 H, Creatinine 1.3 H, Estimated GFR (MDRD) 52 L, Glucose 98, Calcium 8.4 L, Magnesium 2.0 11/23/19 10:37: WBC 8.2, RBC 3.87 L, Hgb 11.9 L, Hct 37.8 L, MCV 97.7 H, MCH 30. 7, MCHC 31.5 L, RDW 13.8, Plt Count 184, MPV 9.7, Neut # (Auto) 6.1, Lymph # (Auto) 1.2 L, Glades # (Auto) 0.8, Eos # (Auto) 0.1, Baso # (Auto) 0.0, Absolute Nucleated RBC 0.00, Nucleated RBC % 0.0 11/23/19 10:37: Troponin I High Sens 9.7 11/22/19 16:52: Blood Type B POSITIVE, Antibody Screen NEGATIVE, Crossmatch IS Only See Detail 11/22/19 12:04: Blood Type Recheck B POSITIVE 11/22/19 11:56: Blood Type Cancelled, Antibody Screen Cancelled, Crossmatch IS Only See Detail 11/22/19 09:46: PT 15.5 H, INR 1.4 H 11/22/19 09:46: Sodium 143, Potassium 4.5, Chloride 107, Carbon Dioxide 28, Anion Gap 8.0, BUN 42 H, Creatinine 1.7 H, Estimated GFR (MDRD) 38 L, Glucose 108 H, Calcium 9.0, Magnesium 2.1, Total Bilirubin 0.8, AST 23, ALT 16, Alkaline Phosphatase 106, Total Protein 7.2, Albumin 3.4, Globulin 3.8, Albumin/Globulin Ratio 0.9 L, Lipase 54 H 11/22/19 09:46: WBC 11.1 H, RBC 4.10 L, Hgb 12.7 L, Hct 39.4 L, MCV 96.1 H, MCH 31.0, MCHC 32.2, RDW 13.8, Plt Count 190, MPV 9.8, Neut # (Auto) 8.6 H, Lymph # (Auto) 1.1 L, Glades # (Auto) 1.1 H, Eos # (Auto) 0.2, Baso # (Auto) 0.0, Absolute Nucleated RBC 0.00, Nucleated RBC % 0.0 Fish Bones: 11/23/19 10:37 11/23/19 10:37 Home Medications and Allergies Home Medications: Ambulatory Orders Pantoprazole Sodium 20 mg PO DAILY 11/22/19 Active Medications Acetaminophen (Tylenol) 650 mg PO Q4HR PRN PRN Reason: Pain 1 to 4 Al Hydroxide/Mg Hydroxide (Mylanta Plus) 20 ml PO TID PRN PRN Reason: Heartburn Albuterol () 2.5 mg INH RTQ4H PRN PRN Reason: Wheezing Albuterol/Ipratropium (Duoneb) 3 ml INH RTQID PRN PRN Reason: Shortness of Air/Wheezing Alprazolam (Xanax) 0.25 mg PO TID PRN PRN Reason: Anxiety Alprazolam (Xanax) 0.25 mg PO BID [facility] Last Admin: 11/23/19 10:23 Dose: Not Given Aspirin (Ecotrin) 81 mg PO DAILY [facility] Last Admin: 11/23/19 10:22 Dose: Not Given Bisacodyl (Dulcolax Supp) 10 mg IN DAILY PRN PRN Reason: Constipation Duloxetine HCl (Cymbalta) 30 mg PO DAILY [facility] Last Admin: 11/23/19 10:22 Dose: Not Given Famotidine (Pepcid) 20 mg PO QPM [facility] Last Admin: 11/22/19 22:23 Dose: Not Given Guaifenesin (Robitussin Dm) 5 ml PO Q4H PRN PRN Reason: Cough Heparin Sodium (Porcine) () 5,000 unit SUBQ BID [facility] Last Admin: 11/23/19 10:22 Dose: Not Given Hydralazine HCl (Apresoline Inj) 10 mg IVP Q4H PRN PRN Reason: Hypertensive Emergency Last Admin: 11/23/19 09:00 Dose: 10 mg Cefazolin Sodium 2 gm/ Sodium (Chloride) 100 mls @ 200 mls/hr IV ONCE ONE Stop: 11/23/19 09:59 Magnesium Hydroxide (Milk Of Magnesia) 1,200 mg PO DAILY PRN PRN Reason: Constipation Metoprolol Succinate (Toprol Xl) 100 mg PO DAILY [facility] Last Admin: 11/23/19 10:21 Dose: Not Given Morphine Sulfate (Morphine (Carpuject)) 2 mg IVP Q2HR PRN PRN Reason: Pain 8 to 10 Last Admin: 11/23/19 10:25 Dose: 2 mg Ondansetron HCl (Zofran Inj) 4 mg IVP Q6HR PRN PRN Reason: Nausea / Vomiting Oxycodone HCl (Roxicodone) 5 mg PO Q4HR PRN PRN Reason: Pain 5 to 7 Quetiapine Fumarate (Seroquel) 25 mg PO BID [facility] Last Admin: 11/23/19 10:21 Dose: Not Given Sodium Chloride (Normal Saline Flush 0.9%) 10 ml IVP PRN PRN PRN Reason: NEEDED PER PROVIDER ORDERS Last Admin: 11/23/19 10:27 Dose: 10 ml Sodium Chloride (Normal Saline Flush 0.9%) 10 ml IVP 0100,0900,1700 [facility] Last Admin: 11/23/19 09:00 Dose: 10 ml DULoxetine [Cymbalta] 30 mg PO DAILY 09/04/17 Ipratropium/Albuterol Sulfate [Iprat-Albut 0.5-3(2.5) mg/3 ml] 1 amp INH Q6H PRN 09/04/17 ALPRAZolam [Alprazolam] 0.25 mg TID PRN 08/18/19 Albuterol Sulf [Ventolin Hfa Inhaler] 2 puffs INH Q4H PRN 08/18/19 Metoprolol Succinate 100 mg PO DAILY 08/18/19 ALPRAZolam [Alprazolam] 0.25 mg PO BID 09/29/19 Acetaminophen 650 mg PO Q6H PRN MDD NTE 3g/day 09/29/19 Aspirin [Aspirin EC] 81 mg PO DAILY 03/26/20 Bisacodyl Supp [Dulcolax Supp] 10 mg IN DAILY PRN MDD Given after MOM not effective 09/29/19 Guaifenesin/Dextromethorphan [Guaifenesin-Dm 100-10 mg/5 ml] 5 ml PO Q4H PRN 09/29/19 Loperamide HCl [Loperamide] 2 mg PO PRN PRN MDD 4mg then 2mg each loose stool 09/29/19 Mag Hydrox/Aluminum Hyd/Simeth [Antacid Plus Gas Relief Liquid] 20 ml PO TID PRN 09/29/19 Magnesium Hydroxide [Milk of Magnesia] 30 ml PO DAILY PRN MDD No BM in 3 days 09/29/19 QUEtiapine [SEROquel] 25 mg PO BID 09/29/19 Acetaminophen 650 mg PO DAILY 11/16/19 Pantoprazole Sodium 20 mg PO DAILY 11/22/19 Allergies/Adverse Reactions: Allergies Allergy/AdvReac Type Severity Reaction Status Date / Time Penicillins Allergy Unknown Verified 11/22/19 09:29 Sulfa (Sulfonamide Allergy Unknown Verified 11/22/19 09:29 Antibiotics) Anes History & Medical History - Anesthetic History Anesthesia Complications: reports: No previous complications (unknown, patient poor historian, dementia) - Medical History Cardiovascular: reports: Congestive heart failure, Hypertension, High cholesterol, Coronary artery disease, Peripheral Vascular Disease, Other (AAA) Pulmonary: reports: COPD Gastrointestinal: reports: GERD Urinary: reports: None Neuro: reports: Dementia, Peripheral neuropathy Musculoskeletal: reports: None Endocrine/Autoimmune: reports: None Smoking Status: Never smoker Other Past Medical History: AAA - Surgical History Cardiothoracic: Angioplasty (?angioplasty in the past per daughter/DPOA) Exam General: No acute distress Dental: WNL, Dentures full Upper, Dentures full Lower Mouth Opening: Greater than 4 Fingerbreadths Mallampati classification: II Respiratory: Lungs clear Cardiovascular: Regular rate, Normal S1, Normal S2 Plan Anesthesia Type: Spinal Consent for Procedure(s) Verified and Reviewed: Yes Code Status: Attempt Resuscitation ASA classification: 3-Severe systemic disease Is this case an emergency?: Yes
[2019-11-23] MEDS ORDERED: LIDOCAINE 1%-EPI 1:100000 20 ML MDV ONE (12:18)
[2019-11-23] MEDS ORDERED: BUPIVACAINE 0.25% PF 30 ML VIAL ONE (12:18)
[2019-11-23] MEDS ORDERED: LACTATED RINGERS 1,000 ML IV ONE ×2 (14:12→14:33)
[2019-11-23] MEDS ORDERED: BUPIVACAINE 0.25% PF 30 ML VIAL SUBQ ONE ×2 (14:36)
[2019-11-23] MEDS ORDERED: LIDOCAINE 1%-EPI 1:100000 30 ML MDV SUBQ ONE ×2 (14:36)
--- NOTE | 2019-11-23 14:36 | PROVIDER PROGRESS NOTE ---
Assessment/Plan - Problem List (1) Femoral neck fracture Qualifiers: Encounter type: initial encounter Fracture type: closed Laterality: right Qualified Code(s): S72.001A - Fracture of unspecified part of neck of right femur, initial encounter for closed fracture Assessment/Plan: 11/22 pt's ECHO and EKG was unremarkable. pt refused to have lab test in night. after After the patient's daughter come to the hospital, patient agree to have lab test, lab test show unremarkable, patient will have surgery today to repair R hip.DVT prophylaxis will dependent on the surgeon, Patient had no-witness fall, then patient complain right hip pain. Xray of right hip review Accu fracture,Also. The surgeon was consulted and planning patient have surgery on tomorrow. pre-op assessment using the Revised Cardiac Risk Index is 6.6 %, moderate Risk plan: consult with orthopedics surgeon, order ECHO prior To the surgery, Discussed with the surgeon for care plan, patient also on the EKG. Orthopedics surgeon discussed her with the family patient DPOA, DPOA want to continue have surgery for patient. plan the surgery on tomorrow, n.p.o. after midnight, intravenous IVF, pain control, (2) Advanced dementia Conclusion/Plan: 11/22 Patient has a history of behavioral disturbance a second to his advanced dementia, yesterday evening patient present combative behavior, we cannot draw the blood for the test.Discussed care plan with the patient's daughter, patient's daughter come to the hospital at patient's bedside. continue nursing s upport, Patient has a history of advanced dementia, we will continue to discuss with care plan with the DPOA, will continue the nursing support, (3) HTN (hypertension) Conclusion/Plan: Patient has slightly elevated blood pressure. 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, continue vital signs check the patient, (5) COPD (chronic obstructive pulmonary disease) Conclusion/Plan: Stable, continue breathing treatment as needed, (6) ARGELIA (acute kidney injury) Conclusion/Plan: 11/22 Creatinine down to the 1.4 from 1.7 at his admission, improved, continue gently hydration, continue lab monitor Patient has increased creatinine from 1.4 to 1.7, patient is likely secondary to dehydration, hydration with intravenous IV fluids, continue lab test monitor patient, - Current Meds Current Meds: Current Medications Generic Name Dose Route Start Last Admin Trade Name Freq PRN Reason Stop Dose Admin Alprazolam 0.25 mg 11/22/19 21:00 11/23/19 10:23 Xanax PO Not Given BID [facility] Aspirin 81 mg 11/23/19 09:00 11/23/19 10:22 Ecotrin PO Not Given DAILY [facility] Duloxetine HCl 30 mg 11/23/19 09:00 11/23/19 10:22 Cymbalta PO Not Given DAILY [facility] Famotidine 20 mg 11/22/19 21:00 11/22/19 22:23 Pepcid PO Not Given QPM [facility] Heparin Sodium (Porcine) 5,000 unit 11/22/19 21:00 11/23/19 10:22 SUBQ Not Given BID [facility] Hydralazine HCl 10 mg 11/22/19 18:44 11/23/19 09:00 Apresoline Inj IVP 10 mg Q4H PRN Administration Hypertensive Emergency Metoprolol Succinate 100 mg 11/23/19 09:00 11/23/19 10:21 Toprol Xl PO Not Given DAILY [facility] Morphine Sulfate 2 mg 11/22/19 11:51 11/23/19 10:25 Morphine (Carpuject) IVP 2 mg Q2HR PRN Administration Pain 8 to 10 Quetiapine Fumarate 25 mg 11/22/19 21:00 11/23/19 10:21 Seroquel PO Not Given BID [facility] Sodium Chloride 10 ml 11/22/19 11:51 11/23/19 10:27 Normal Saline Flush 0.9% IVP 10 ml PRN PRN Administration NEEDED PER PROVIDER ORDERS Sodium Chloride 10 ml 11/22/19 17:00 11/23/19 09:00 Normal Saline Flush 0.9% IVP 10 ml 0100,0900,1700 URIEL Administration - Lab Result Fish Bone Diagrams: 11/23/19 10:37 11/23/19 10:37 - Additional Planning My Orders: My Active Orders 11/22/19 16:52 RBC, LEUKOREDUCED Routine TYPE AND SCREEN Routine 11/22/19 17:00 Sodium Chloride Flush 0.9% [Normal Saline Flush 0.9%] 10 ml IVP 0100,0900,1700 11/22/19 18:44 hydrALAZINE INJ [Apresoline Inj] 10 mg IVP Q4H PRN 11/22/19 21:00 ALPRAZolam [Xanax] 0.25 mg PO BID Famotidine [Pepcid] 20 mg PO QPM Heparin 5,000 unit SUBQ BID QUEtiapine [SEROquel] 25 mg PO BID 11/23/19 00:01 NPO except Meds [DIET] 11/23/19 09:00 Aspirin EC [Ecotrin] 81 mg PO DAILY DULoxetine [Cymbalta] 30 mg PO DAILY Metoprolol Succinate [Toprol Xl] 100 mg PO DAILY 11/23/19 13:00 COVID-19 REFERENCE TEST Routine 11/24/19 05:00 BMP - BASIC METABOLIC PANEL [CHEM] DAILYLAB CBC - COMP BLD CT W/AUTO DIFF [HEME] [facility]ILY[facility] 11/25/19 05:00 BMP - BASIC METABOLIC PANEL [CHEM] DAILYLAB CBC - COMP BLD CT W/AUTO DIFF [HEME] [facility] 11/26/19 05:00 BMP - BASIC METABOLIC PANEL [CHEM] DAILYLAB CBC - COMP BLD CT W/AUTO DIFF [HEME] [facility]ILYLAB 11/27/19 05:00 BMP - BASIC METABOLIC PANEL [CHEM] DAILYLAB CBC - COMP BLD CT W/AUTO DIFF [HEME] DAILYLAB Objective Vital Signs: Vital Signs - 24 hr 11/22/19 11/22/19 11/22/19 14:34 15:40 23:49 Temperature 36.7 C 36.8 C 36.6 C Heart Rate [ 60 62 68 Brachial] Respiratory 20 18 20 Rate Blood Pressure Blood Pressure 169/83 H 156/92 H [Left Brachial artery] Blood Pressure 176/95 H [Right Brachial artery] O2 Saturation 97 96 100 11/23/19 11/23/19 11/23/19 04:50 07:34 08:57 Temperature 36.9 C 36.8 C Heart Rate [ 70 73 85 Brachial] Respiratory 20 17 Rate Blood Pressure Blood Pressure 151/92 H 178/85 H 175/88 H [Left Brachial artery] Blood Pressure [Right Brachial artery] O2 Saturation 98 100 11/23/19 11/23/19 09:05 09:30 Temperature Heart Rate [ 80 Brachial] Respiratory Rate Blood Pressure 153/88 H Blood Pressure 137/90 H [Left Brachial artery] Blood Pressure [Right Brachial artery] O2 Saturation Oxygen O2 Source Nasal cannula I&O (Last 24 Hrs): Intake and Output Totals x24h 11/21/19 11/22/19 11/23/19 23:59 23:59 23:59 Intake Total 999 1999 Balance 999 1999 - Results Results: Laboratory Results WBC 8.2 x10^3/uL (4.8-10.8) 11/23/19 10:37 RBC 3.87 10^6/uL (4.70-6.10) L 11/23/19 10:37 Hgb 11.9 g/dL (14.0-18.0) L 11/23/19 10:37 Hct 37.8 % (42.0-52.0) L 11/23/19 10:37 MCV 97.7 fL (80.0-94.0) H 11/23/19 10:37 MCH 30.7 pg (27.0-31.0) 11/23/19 10:37 MCHC 31.5 g/dL (32.0-36.0) L 11/23/19 10:37 RDW 13.8 % (12.0-15.0) 11/23/19 10:37 Plt Count 184 10^3/uL (130-450) 11/23/19 10:37 MPV 9.7 fL (7.4-11.4) 11/23/19 10:37 Neut # (Auto) 6.1 10^3/uL (1.5-6.6) 11/23/19 10:37 Lymph # (Auto) 1.2 10^3/uL (1.5-3.5) L 11/23/19 10:37 [place] # (Auto) 0.8 10^3/uL (0.0-1.0) 11/23/19 10:37 Eos # (Auto) 0.1 10^3/uL (0.0-0.7) 11/23/19 10:37 Baso # (Auto) 0.0 10^3/uL (0.0-0.1) 11/23/19 10:37 Absolute Nucleated RBC 0.00 x10^3/uL 11/23/19 10:37 Nucleated RBC % 0.0 /100WBC 11/23/19 10:37 PT 15.5 secs (9.9-12.6) H 11/22/19 09:46 INR 1.4 (0.8-1.2) H 11/22/19 09:46 Sodium 143 mmol/L (135-145) 11/23/19 10:37 Potassium 4.2 mmol/L (3.5-5.0) 11/23/19 10:37 Chloride 112 mmol/L (101-111) H 11/23/19 10:37 Carbon Dioxide 23 mmol/L (21-32) 11/23/19 10:37 Anion Gap 8.0 (6-13) 11/23/19 10:37 BUN 29 mg/dL (6-20) H 11/23/19 10:37 Creatinine 1.3 mg/dL (0.6-1.2) H 11/23/19 10:37 Estimated GFR (MDRD) 52 (>89) L 11/23/19 10:37 Glucose 98 mg/dL (70-100) 11/23/19 10:37 Calcium 8.4 mg/dL (8.5-10.3) L 11/23/19 10:37 Magnesium 2.0 mg/dL (1.7-2.8) 11/23/19 10:37 Total Bilirubin 0.8 mg/dL (0.2-1.0) 11/22/19 09:46 AST 23 IU/L (10-42) 11/22/19 09:46 ALT 16 IU/L (10-60) 11/22/19 09:46 Alkaline Phosphatase 106 IU/L (42-121) 11/22/19 09:46 Troponin I High Sens 9.7 ng/L (2.3-19.7) 11/23/19 10:37 Total Protein 7.2 g/dL (6.7-8.2) 11/22/19 09:46 Albumin 3.4 g/dL (3.2-5.5) 11/22/19 09:46 Globulin 3.8 g/dL (2.1-4.2) 11/22/19 09:46 Albumin/Globulin Ratio 0.9 (1.0-2.2) L 11/22/19 09:46 Lipase 54 U/L (22-51) H 11/22/19 09:46 Blood Type B POSITIVE 11/22/19 16:52 Blood Type Recheck B POSITIVE 11/22/19 12:04 Antibody Screen NEGATIVE 11/22/19 16:52 Crossmatch IS Only See Detail 11/22/19 16:52 Sepsis Event Note (H) - Evaluation Current Stage of Sepsis: Ruled out ABX Reporting Has patient been on IV antibiotics over the past 48 hours?: No
[2019-11-23] MEDS ORDERED: SUGAMMADEX 200 MG/2 ML VIAL IVP ONE (15:27)
[2019-11-23] MEDS ORDERED: SODIUM CHLORIDE FLUSH 0.9% 10 ML SYRINGE IVP PRN (15:54)
[2019-11-23] MEDS ORDERED: PROCHLORPERAZINE 10 MG/2 ML VIAL IVP PRN (15:54)
[2019-11-23] MEDS ORDERED: DOCUSATE SODIUM 100 MG CAPSULE PO PRN (15:54)
[2019-11-23] MEDS ORDERED: ONDANSETRON 4 MG/2 ML VIAL IVP PRN (15:54)
[2019-11-23] MEDS ORDERED: ACETAMINOPHEN 325 MG TABLET PO PRN (15:54)
[2019-11-23] MEDS ORDERED: SENNA 8.6 MG TABLET PO PRN (15:54)
--- NOTE | 2019-11-23 16:15 | OPERATIVE REPORT ---
Operative Report - General Admit Date: 11/22/19 Procedure Date: 11/23/19 Planned Procedure: Cementless right bi-polar hip hemiarthoplasty Pre-Op Diagnosis: Displaced right femoral neck fracture Procedure Performed: Cementless right bi-polar hip hemiarthoplasty Post Op Diagnosis: Displaced right femoral neck fracture - Procedure Note Primary Surgeon: Dr. Rodríguez Bazzi Secondary Surgeon: N/A Anesthesia Provider: Arabella Roberts Anesthesia Technique: General ET tube, Local (Note was reviewed and approved by Dr. Bazzi, full operative note was dictated by Dr Bazzi), Spinal (Spinal did not achieve approproiate anaesthesia and a subsequent RSI with ET tube was required) Pathology: N/A IV Fluids (mL): 1,000 (Lactated ringers ) Estimated Blood Loss (mL): 200 (ml) Urine Output (mL): 150 (cc) Drain/Tube Type: Self contained Complications: None
--- NOTE | 2019-11-23 16:27 | PROVIDER PROGRESS NOTE ---
Subjective - Prog Note Date Prog Note Date: 11/23/19 Prog Note Time: 16:25 - Subjective Pt reports feeling: No change (Post op Day1) Objective - Vital Signs/Intake & Output Vital Signs: Vital Signs x48h Temp Pulse Pulse Resp BP BP Pulse Ox 11/23/19 16:15 36 C L 80 14 157/88 H 96 11/23/19 16:10 36 C L 80 12 180/90 H 96 11/23/19 16:05 36. C L 81 12 176/97 H 11/23/19 09:30 153/88 H 11/23/19 09:05 80 137/90 H 11/23/19 08:57 85 175/88 H Intake & Output: Intake & Output 11/20/19 11/21/19 11/22/19 11/23/19 23:59 23:59 23:59 23:59 Intake Total 1000 2000 Balance 1000 1999 - Lab Results Fish Bones: 11/23/19 10:37 11/23/19 10:37 Other Labs: Lab Results x24hrs 11/23/19 11/23/19 11/23/19 Range/Units 10:37 10:37 10:37 WBC 8.2 (4.8-10.8) x10^3/uL RBC 3.87 L (4.70-6.10) 10^6/uL Hgb 11.9 L (14.0-18.0) g/dL Hct 37.8 L (42.0-52.0) % MCV 97.7 H (80.0-94.0) fL MCH 30.7 (27.0-31.0) pg MCHC 31.5 L (32.0-36.0) g/dL RDW 13.8 (12.0-15.0) % Plt Count 184 (130-450) 10^3/uL MPV 9.7 (7.4-11.4) fL Neut # (Auto) 6.1 (1.5-6.6) 10^3/uL Lymph # (Auto) 1.2 L (1.5-3.5) 10^3/uL [place] # (Auto) 0.8 (0.0-1.0) 10^3/uL Eos # (Auto) 0.1 (0.0-0.7) 10^3/uL Baso # (Auto) 0.0 (0.0-0.1) 10^3/uL Absolute Nucleated RBC 0.00 x10^3/uL Nucleated RBC % 0.0 /100WBC Sodium 143 (135-145) mmol/L Potassium 4.2 (3.5-5.0) mmol/L Chloride 112 H (101-111) mmol/L Carbon Dioxide 23 (21-32) mmol/L Anion Gap 8.0 (6-13) BUN 29 H (6-20) mg/dL Creatinine 1.3 H (0.6-1.2) mg/dL Estimated GFR (MDRD) 52 L (>89) Glucose 98 (70-100) mg/dL Calcium 8.4 L (8.5-10.3) mg/dL Magnesium 2.0 (1.7-2.8) mg/dL Troponin I High Sens 9.7 (2.3-19.7) ng/L Blood Type Antibody Screen Crossmatch IS Only 11/22/19 Range/Units 16:52 WBC (4.8-10.8) x10^3/uL RBC (4.70-6.10) 10^6/uL Hgb (14.0-18.0) g/dL Hct (42.0-52.0) % MCV (80.0-94.0) fL MCH (27.0-31.0) pg MCHC (32.0-36.0) g/dL RDW (12.0-15.0) % Plt Count (130-450) 10^3/uL MPV (7.4-11.4) fL Neut # (Auto) (1.5-6.6) 10^3/uL Lymph # (Auto) (1.5-3.5) 10^3/uL [place] # (Auto) (0.0-1.0) 10^3/uL Eos # (Auto) (0.0-0.7) 10^3/uL Baso # (Auto) (0.0-0.1) 10^3/uL Absolute Nucleated RBC x10^3/uL Nucleated RBC % /100WBC Sodium (135-145) mmol/L Potassium (3.5-5.0) mmol/L Chloride (101-111) mmol/L Carbon Dioxide (21-32) mmol/L Anion Gap (6-13) BUN (6-20) mg/dL Creatinine (0.6-1.2) mg/dL Estimated GFR (MDRD) (>89) Glucose (70-100) mg/dL Calcium (8.5-10.3) mg/dL Magnesium (1.7-2.8) mg/dL Troponin I High Sens (2.3-19.7) ng/L Blood Type B POSITIVE Antibody Screen NEGATIVE Crossmatch IS Only See Detail Sepsis Event Note (H) - Evaluation Current Stage of Sepsis: Ruled out Assessment/Plan - Problem List (1) Femoral neck fracture Qualifiers: Encounter type: initial encounter Fracture type: closed Laterality: right Qualified Code(s): S72.001A - Fracture of unspecified part of neck of right femur, initial encounter for closed fracture
[2019-11-23 16:29] LABS: BILIRUBIN,URINE NEGATIVE (NEGATIVE); GLUCOSE, URINE (UA) NEGATIVE (NEGATIVE); KETONES,URINE (UA) 15 mg/dL (NEGATIVE); LEUKOCYTE ESTERASE, URINE SMALL (NEGATIVE); NITRITE,URINE NEGATIVE (NEGATIVE); OCCULT BLOOD,URINE SMALL (NEGATIVE); PROTEIN,URINE TRACE mg/dL (NEGATIVE); UROBILINOGEN,URINE 0.2 (NORMAL) E.U./dL (NORMAL)
[2019-11-23 16:30] LABS: CLARITY,URINE HAZY (CLEAR)
[2019-11-23 16:44] LABS: BACTERIA,URINE Few /HPF (None Seen); RBC,URINE 0-5 /HPF (0-5); SQUAMOUS EPITHELIAL CELL,UR RARE Squamous (<= Few)
[2019-11-23] MEDS ORDERED: SODIUM CHLORIDE FLUSH 0.9% 10 ML SYRINGE IVP SCH (17:00)
--- NOTE | 2019-11-23 17:15 | XRAY Report ---
Reason: Post-op X-ray Procedure Date: 11/23/2019 Accession Number: [id number] / [id number] Procedure: XR - Hip w/Pelvis 1V RT CPT Code: Final Report FULL RESULT: EXAM: RIGHT HIP RADIOGRAPHY EXAM DATE: 11/23/2019 04:20 PM. CLINICAL HISTORY: Post-op X-ray. COMPARISON: HIP W/PELVIS 2-3V RT 11/22/2019 9:22 AM. TECHNIQUE: 2 frontal views. FINDINGS: Study limited by portable technique and lack of orthogonal view. Bones/Joints: Status post right hip hemiarthroplasty. The hardware alignment and position are satisfactory on these frontal projections but is inadequately evaluated due to lack of orthogonal lateral view. No displaced perioperative fracture is seen. Soft tissues: Soft tissue swelling and gas within the soft tissues related to recent surgery. Again bilateral iliac artery stents and surgical clips in the pelvis. There is also a vascular stent in the right mid thigh. Skin dwight overlie the right hip. No known expected radiopaque foreign body in the shape of a known surgical instrument is seen. Please note that a small surgical instrument or prosthesis may be obscured by implanted metallic instrumentation and would not be visible. In addition, instrumentation utilized during the procedure may not be recognized, so confirmation by an agent present at and familiar with the operative procedure and instrument should be made. IMPRESSION: 1. Status post right hip hemiarthroplasty without obvious evidence of complication. Consider complete hip series as baseline when patient able to cooperate. 2. No unexpected retained radiopaque surgical instrument is identified. RADIA
--- NOTE | 2019-11-23 17:19 | OPERATIVE REPORT ---
DATE OF SERVICE: 11/23/2019 Physician: Rodríguez Bazzi MD PREOPERATIVE DIAGNOSIS: Closed displaced right femoral neck fracture. POSTOPERATIVE DIAGNOSIS: Closed displaced right femoral neck fracture. PROCEDURE PERFORMED: Cementless right bipolar hip hemiarthroplasty. SURGEON: Rodríguez Bazzi MD ANESTHESIA: General and spinal. DESCRIPTION OF PROCEDURE: The patient was taken to the operating room in the late morning of 11/23/2019, where he was placed under a spinal anesthetic. He was then positioned in lateral decubitus, held in place with the pegboard portion of our OR table. After we prepped and draped the leg, we started our incision. He was noted to still be having some pain from the incision. At this point, we then had anesthesia intubate the patient. He was placed under general anesthetic. Once we had adequate anesthesia, we then proceeded with our procedure. After making our curvilinear skin incision over the posterolateral aspect of the hip, we obtained hemostasis with electrocautery. We then incised the tensor fascia justo in the same direction as our skin incision. We then came down onto the short external rotators. Using electrocautery, we then transected the short external rotators to gain access to the posterolateral aspect of the hip joint. At this point, we performed a T-type capsulotomy incision posteriorly with electrocautery. We tagged the 2 flaps with a [id number] stitch of 2-0 Vicryl stay sutures. We then were able to visualize the femoral head at the level of the fracture. Using the corkscrew extractor, we then placed this extractor into the hip and into the fractured femoral head. With the hip skid in place, we were then able to gently remove the femoral head. Using our sizer, we determined that a 53 mm outside-diameter bipolar prosthesis would be needed. At this point, we used rongeurs to remove the ligamentum teres and any further soft tissue or bony fragments within the acetabulum. Irrigation was used to remove the small residual fragments within the acetabulum. At this point, we then put a trial prosthesis into the acetabulum. We determined that a 53 mm outside diameter would be adequate, giving a nice suction fit in the acetabulum, as well as free flowing motion of the femoral head. We removed the femoral head prostheses out the acetabulum. We then directed our attention to the proximal femur. Using the template, we determined the level of and angle of our osteotomy of the proximal femur. This was about a fingerbreadth proximal to the lesser trochanter and in the direction of our alignment jig. Oscillating saw was used to create our osteotomy cut. We completed the osteotomy laterally from a vertical approach. After removing the bony fragments with a rongeur, we then used the box osteotome to create more space laterally at the osteotomy site. Next, the [facility] used to determine the central canal and direction for our preparation of the proximal femur. We then sequentially used rigid reamers and noted that the canal appeared to be a size 12 mm. This is where we were starting to get some actual chatter from our reamer. We then proceeded to sequentially broach the proximal femur, starting first with the 10, then 11, then finally a 12 broach. This seated nicely with the proper depth of the broach. We removed the handle from the broach, and then inserted a trial prostheses with 0 neck length, standard offset and with a 53 mm outside diameter. This reduced into the hip easily. Empirically, it appeared as if the legs were equal in length after the reduction, and we had good range of motion of the hip in extension and with it externally rotated without any impingement. The patient was stable in sleep position. Finally, with the hip at about 90 degrees of flexion and 0 degrees abduction, we were able to internally rotate the leg approximately 60-70 degrees before subluxation of the hip occurred. We then dislocated the trial prostheses and removed all the trial prostheses. We then irrigated with sterile saline the proximal femur as well as the acetabulum. Our permanent prostheses was then inserted, first inserted the stem of the proximal femoral prostheses, which was a porous coat with WATTS coated, down the prepared canal. Next, we then placed the bipolar component, as noted above, on top of our inserted prostheses. It was seated with 3 blows of the mallet and the hip pusher on our bipolar component. Next, we then gently reduced the implant into the acetabulum without any problems. We checked, and there appeared to be no soft tissue interposition noted. We then checked the leg. Again, it appeared to be essentially out to length compared to the opposite side. The hip was stable in full extension, and no pistoning was noted at the joint with traction on the leg. We then placed the leg in sleep position, and it was stable. Finally, with the hip flexed at about 90 degrees with 0 degrees of adduction, we were able to internally rotate the leg to about 60 degrees, with just starting to get some subluxation at the joint. This was deemed to be acceptable. We then irrigated the wounds out thoroughly with saline. We reattached the capsular flaps using a free needle to the posterolateral aspect of the joint. Finally, using rzbfgl-[id number] stitches of 0 Polysorb, we repaired the fascia justo incision. Buried simple stitches of 2-0 Vicryl were used to approximate the subcutaneous tissues. Finally, skin dwight were used to appose the skin incision. Dressed the wound with Xeroform gauze, 4 x 4's, and an Op-Site dressings. It should be noted before we dressed the leg that we did infuse approximately 25 mL of 0.25% Marcaine with epinephrine in the incision to allow for local anesthetic. We then took the drapes off the patient and placed his leg into a hip abductor pillow, maintaining the leg in a stable position. Patient was positioned supine and taken to the recovery room in satisfactory condition. ESTIMATED BLOOD LOSS: Approximately 200 mL of blood. REPLACEMENT: 1000 mL of crystalloid. INTRAOPERATIVE COMPLICATIONS: None. PLAN: Patient will have total hip precautions with regards to positioning of his hip postoperatively. May be up weightbearing as tolerated beginning on postoperative day 1. TD: 11/23/2019 16:25 JUANY
[2019-11-23] MEDS: FAMOTIDINE 20 MG TABLET PO SCH ×2 (20:18→21:51)
[2019-11-23] MEDS: ceFAZolin 2 GM in SODIUM CHLORIDE 0.9% 100ML 100 ML IV SCH (23:58)
[2019-11-24] MEDS: MORPHINE 2 MG/ML CARPUJECT IVP PRN ×3 (02:33→18:21)
[2019-11-24] MEDS: SODIUM CHLORIDE 0.9% 1,000 ML IV SCH ×3 (03:25→14:59)
--- NOTE | 2019-11-24 08:26 | XRAY Report ---
Reason: sob Procedure Date: 11/24/2019 Accession Number: [id number] / [id number] Procedure: XR - Chest 1 View X-Ray CPT Code: 57833 Final Report FULL RESULT: EXAM: CHEST RADIOGRAPHY EXAM DATE: 11/24/2019 08:13 AM. CLINICAL HISTORY: Sob. COMPARISON: CHEST 1 VIEW 11/22/2019 9:19 AM. TECHNIQUE: 1 view. FINDINGS: Lungs/Pleura: No focal opacities evident. No pleural effusion. No pneumothorax. Mediastinum: Within exam limitations, the cardiomediastinal contour is normal. Other: None. IMPRESSION: No focal consolidation. RADIA
[2019-11-24] MEDS ORDERED: ENOXAPARIN 40 MG/0.4 ML SYRINGE SUBQ SCH (09:00)
[2019-11-24] MEDS: MULTIVITAMIN W/MINERALS TABLET PO SCH (09:21)
[2019-11-24] MEDS: ALPRAZolam 0.25 MG TABLET PO SCH ×2 (09:21→20:37)
[2019-11-24] MEDS: METOPROLOL SUCCINATE 50 MG TABLET PO SCH (09:22)
[2019-11-24] MEDS: SODIUM CHLORIDE FLUSH 0.9% 10 ML SYRINGE IVP SCH ×3 (09:22→23:18)
[2019-11-24] MEDS: LACTOBACILLUS RHAMNOSUS GG CAPSULE PO SCH (09:22)
[2019-11-24] MEDS: DULoxetine 30 MG CAPSULE PO SCH (09:22)
[2019-11-24] MEDS: polyethylene glycoL 3350 17 GM PACKET PO SCH (09:22)
[2019-11-24] MEDS: QUEtiapine 25 MG TABLET PO SCH ×2 (09:22→20:37)
[2019-11-24] MEDS: ASPIRIN EC 81 MG TABLET PO SCH (09:22)
[2019-11-24] MEDS: METOPROLOL 5 MG/5 ML VIAL IVP PRN ×2 (09:30→17:00)
[2019-11-24] MEDS: ceFAZolin 2 GM in SODIUM CHLORIDE 0.9% 100ML 100 ML IV SCH (09:35)
[2019-11-24] MEDS: HEPARIN 5,000 UNIT/ML VIAL SUBQ SCH ×2 (10:17→20:38)
[2019-11-24] MEDS ORDERED: PROPOFOL 200 MG/20 ML VIAL IVP ONE (12:44)
[2019-11-24] MEDS ORDERED: SUGAMMADEX 200 MG/2 ML VIAL IVP ONE (12:44)
[2019-11-24] MEDS ORDERED: MIDAZOLAM 2 MG/2 ML VIAL IVP ONE (12:44)
[2019-11-24] MEDS ORDERED: LIDOCAINE-MPF 2% 5 ML VIAL IM ONE (12:44)
[2019-11-24] MEDS ORDERED: fentaNYL 100 MCG/2 ML VIAL IVP ONE (12:44)
[2019-11-24] MEDS ORDERED: PHENYLEPHRINE 10 MG/ML VIAL IV ONE (12:44)
[2019-11-24] MEDS ORDERED: ePHEDrine 50 MG/ML VIAL IVP ONE (12:44)
[2019-11-24] MEDS ORDERED: ROCURONIUM 50 MG/5 ML VIAL IVP ONE (12:44)
[2019-11-24] MEDS ORDERED: LORazepam 2 MG/ML VIAL IVP SCH (13:00)
[2019-11-24] MEDS: LORazepam 2 MG/ML VIAL IVP PRN ×2 (13:03→20:39)
--- NOTE | 2019-11-24 13:10 | PROVIDER PROGRESS NOTE ---
Subjective - Prog Note Date Prog Note Date: 11/24/19 Prog Note Time: 13:08 - Subjective Pt reports feeling: Improved (Less combative this AM, although lab unable to do AM draw due to his agitation then) Objective - Vital Signs/Intake & Output Vital Signs: Vital Signs x48h Temp Pulse Resp BP BP BP Pulse Ox 11/24/19 11:15 37.0 C 110 H 16 146/80 H 92 11/24/19 10:15 98 144/80 H 11/24/19 10:00 145/72 H 11/24/19 09:40 109 H 14 109/74 94 11/24/19 09:35 110 H 16 114/69 92 11/24/19 09:30 144 H 16 118/75 118/75 94 11/24/19 08:31 37.0 C 112 H 18 162/93 H 96 Intake & Output: Intake & Output 11/21/19 11/22/19 11/23/19 11/24/19 23:59 23:59 23:59 23:59 Intake Total 1000 2615 822 Output Total 250 750 Balance 1000 2365 72 - Lab Results Fish Bones: 11/23/19 10:37 11/23/19 10:37 Other Labs: Lab Results x24hrs 11/23/19 11/23/19 Range/Units 16:20 13:00 Urine Color YELLOW Urine Clarity HAZY (CLEAR) Urine pH 6.0 (5.0-7.5) PH Ur Specific [place] 1.020 (1.002-1.030) Urine Protein TRACE (NEGATIVE) mg/dL Urine Glucose (UA) NEGATIVE (NEGATIVE) mg/dL Urine Ketones 15 H (NEGATIVE) mg/dL Urine Occult Blood SMALL H (NEGATIVE) Urine Nitrite NEGATIVE (NEGATIVE) Urine Bilirubin NEGATIVE (NEGATIVE) Urine Urobilinogen 0.2 (NORMAL) (NORMAL) E.U./dL Ur Leukocyte Esterase SMALL H (NEGATIVE) Urine RBC 0-5 (0-5) /HPF Urine WBC >25 H (0-3) /HPF Ur Squamous Epith Cells RARE Squamous (<= Few) Urine Bacteria Few (None Seen) /HPF Urine Culture Comments INDICATED Coronavirus (PCR) NEGATIVE - Diagnostic Imaging Diagnostic Imaging Comments: Postop XR shows bipolar hip hewimarthroplasty in place. Joint reduced. - Other Results/Comments Other Results/Comments: EXAM: Dressing intact. Mild hip tenderness. Mild pain with hip rotation. Moves toes well. Warm digits. Sepsis Event Note (H) - Evaluation Current Stage of Sepsis: Ruled out Assessment/Plan - Problem List (1) Femoral neck fracture Impression: Doing well post op PLAN: Continue to mobilize as tolerated. Qualifiers: Encounter type: initial encounter Fracture type: closed Laterality: right Qualified Code(s): S72.001A - Fracture of unspecified part of neck of right femur, initial encounter for closed fracture
[2019-11-24 13:24] LABS: CREATININE 1.2 mg/dL (0.6-1.2)
[2019-11-24 13:29] LABS: BASOPHILS % (AUTO) 0.2 %; HGB - HEMOGLOBIN 9.2 g/dL (14.0-18.0); LYMPHOCYTES # (AUTO) 0.8 10^3/uL (1.5-3.5); LYMPHOCYTES % (AUTO) 6.9 %; MEAN CORPUSCULAR HEMOGLOBIN 29.8 pg (27.0-31.0); MEAN CORPUSCULAR VOLUME 96.1 fL (80.0-94.0); MEAN PLATELET VOLUME 9.9 fL (7.4-11.4); MONOCYTES # (AUTO) 1.3 10^3/uL (0.0-1.0); MONOCYTES % (AUTO) 11.6 %; NEUTROPHILS # (AUTO) 8.9 10^3/uL (1.5-6.6); NEUTROPHILS % (AUTO) 80.9 %; PLT - PLATELET COUNT 180 10^3/uL (130-450); RED BLOOD COUNT 3.09 10^6/uL (4.70-6.10); RED CELL DISTRIBUTION WIDTH 13.9 % (12.0-15.0)
--- NOTE | 2019-11-24 16:27 | PROVIDER PROGRESS NOTE ---
Subjective - Prog Note Date Prog Note Date: 11/24/19 - Subjective Pt reports feeling: Worse Subjective: pt refused to take medications, and combative. we feed pt but pt only took ensurance. I tried to call pt's daughter Alda Martinez at [phone], for care plan, but nobody picked up phone and left message. Current Medications - Current Medications Current Medications: Active Medications Acetaminophen (Tylenol) 650 mg PO Q4HR PRN PRN Reason: Pain 1 to 4 Acetaminophen (Tylenol) 650 - 975 mg PO Q4HR PRN PRN Reason: PAIN Al Hydroxide/Mg Hydroxide (Mylanta Plus) 20 ml PO TID PRN PRN Reason: Heartburn Albuterol () 2.5 mg INH RTQ4H PRN PRN Reason: Wheezing Albuterol/Ipratropium (Duoneb) 3 ml INH RTQID PRN PRN Reason: Shortness of Air/Wheezing Alprazolam (Xanax) 0.25 mg PO TID PRN PRN Reason: Anxiety Alprazolam (Xanax) 0.25 mg PO BID [facility] Last Admin: 11/24/19 09:21 Dose: Not Given Aspirin (Ecotrin) 81 mg PO DAILY [facility] Last Admin: 11/24/19 09:22 Dose: Not Given Bisacodyl (Dulcolax Supp) 10 mg RI DAILY PRN PRN Reason: Constipation Docusate Sodium (Colace 100mg Capsule) 100 mg PO BID PRN PRN Reason: Constipation Duloxetine HCl (Cymbalta) 30 mg PO DAILY [facility] Last Admin: 11/24/19 09:22 Dose: Not Given Famotidine (Pepcid) 20 mg PO QPM [facility] Last Admin: 11/23/19 21:51 Dose: Not Given Guaifenesin (Robitussin Dm) 5 ml PO Q4H PRN PRN Reason: Cough Heparin Sodium (Porcine) () 5,000 unit SUBQ BID [facility] Last Admin: 11/24/19 10:17 Dose: 5,000 unit Hydralazine HCl (Apresoline Inj) 10 mg IVP Q4H PRN PRN Reason: Hypertensive Emergency Last Admin: 11/23/19 09:00 Dose: 10 mg Sodium Chloride (Normal Saline 0.9%) 1,000 mls @ 75 mls/hr IV .[id number] [facility] Last Admin: 11/24/19 14:59 Dose: 75 mls/hr Lactobacillus Rhamnosus (Culturelle) 1 cap PO DAILY [facility] Last Admin: 11/24/19 09:22 Dose: Not Given Lorazepam (Ativan Inj (Vial)) 0.5 mg IVP BID PRN PRN Reason: Anxiety Last Admin: 11/24/19 13:03 Dose: 0.5 mg Magnesium Hydroxide (Milk Of Magnesia) 1,200 mg PO DAILY PRN PRN Reason: Constipation Metoprolol Succinate (Toprol Xl) 100 mg PO DAILY [facility] Last Admin: 11/24/19 09:22 Dose: Not Given Metoprolol Tartrate (Lopressor Inj) 5 mg IVP Q6H PRN PRN Reason: Tachycardia Last Admin: 11/24/19 09:30 Dose: 5 mg Morphine Sulfate (Morphine (Carpuject)) 2 mg IVP Q2HR PRN PRN Reason: Pain 8 to 10 Last Admin: 11/24/19 06:15 Dose: 2 mg Multivitamins/Minerals (Theragran M) 1 tab PO DAILYWM [facility] Last Admin: 11/24/19 09:21 Dose: Not Given Ondansetron HCl (Zofran Inj) 4 mg IVP Q6HR PRN PRN Reason: Nausea / Vomiting Oxycodone HCl (Roxicodone) 5 mg PO Q4HR PRN PRN Reason: Pain 5 to 7 Polyethylene Glycol (Miralax) 17 gm PO DAILY [facility] Last Admin: 11/24/19 09:22 Dose: Not Given Prochlorperazine Edisylate (Compazine Inj) 10 mg IVP Q6HR PRN PRN Reason: Nausea / Vomiting Quetiapine Fumarate (Seroquel) 25 mg PO BID [facility] Last Admin: 11/24/19 09:22 Dose: Not Given Senna (Senokot) 17.2 mg PO Q12H PRN PRN Reason: Constipation Sodium Chloride (Normal Saline Flush 0.9%) 10 ml IVP PRN PRN PRN Reason: NEEDED PER PROVIDER ORDERS Last Admin: 11/23/19 10:27 Dose: 10 ml Sodium Chloride (Normal Saline Flush 0.9%) 10 ml IVP 0100,0900,1700 [facility] Last Admin: 11/24/19 09:22 Dose: Not Given DULoxetine [Cymbalta] 30 mg PO DAILY 09/04/17 Ipratropium/Albuterol Sulfate [Iprat-Albut 0.5-3(2.5) mg/3 ml] 1 amp INH Q6H PRN 09/04/17 ALPRAZolam [Alprazolam] 0.25 mg TID PRN 08/18/19 Albuterol Sulf [Ventolin Hfa Inhaler] 2 puffs INH Q4H PRN 08/18/19 Metoprolol Succinate 100 mg PO DAILY 08/18/19 ALPRAZolam [Alprazolam] 0.25 mg PO BID 09/29/19 Acetaminophen 650 mg PO Q6H PRN MDD NTE 3g/day 09/29/19 Aspirin [Aspirin EC] 81 mg PO DAILY 09/29/19 Bisacodyl Supp [Dulcolax Supp] 10 mg RI DAILY PRN MDD Given after MOM not effective 09/29/19 Guaifenesin/Dextromethorphan [Guaifenesin-Dm 100-10 mg/5 ml] 5 ml PO Q4H PRN 09/29/19 Loperamide HCl [Loperamide] 2 mg PO PRN PRN MDD 4mg then 2mg each loose stool 09/29/19 Mag Hydrox/Aluminum Hyd/Simeth [Antacid Plus Gas Relief Liquid] 20 ml PO TID PRN 09/29/19 Magnesium Hydroxide [Milk of Magnesia] 30 ml PO DAILY PRN MDD No BM in 3 days 09/29/19 QUEtiapine [SEROquel] 25 mg PO BID 09/29/19 Acetaminophen 650 mg PO DAILY 11/16/19 Pantoprazole Sodium 20 mg PO DAILY 11/22/19 Objective - Vital Signs/Intake & Output Reviewed Vital Signs: Yes Vital Signs: Vital Signs x48h Temp Pulse Pulse Pulse Resp BP BP 11/24/19 11:40 140 H 124 H 174/86 H 11/24/19 11:35 140 H 124 H 174/86 H 11/24/19 11:15 37.0 C 110 H 16 11/24/19 10:15 98 11/24/19 10:00 145/72 H 11/24/19 09:40 109 H 14 11/24/19 09:35 110 H 16 11/24/19 09:30 144 H 16 118/75 11/24/19 08:31 37.0 C 112 H 18 BP BP BP Pulse Ox Pulse Ox 11/24/19 11:40 155/83 H 92 11/24/19 11:35 155/83 H 11/24/19 11:15 146/80 H 92 11/24/19 10:15 144/80 H 11/24/19 10:00 11/24/19 09:40 109/74 94 11/24/19 09:35 114/69 92 11/24/19 09:30 118/75 94 11/24/19 08:31 162/93 H 96 Intake & Output: Intake & Output 11/21/19 11/22/19 11/23/19 11/24/19 23:59 23:59 23:59 23:59 Intake Total 1000 2615 1703.75 Output Total 250 750 Balance 1000 2365 953.75 - Objective General Appearance: positive: Alert, Mild distress. negative: Lethargic Eyes Bilateral: positive: Normal inspection, PERRL, No lid inflammation ENT: positive: ENT inspection nml, Pharynx nml, No signs of dehydration. negative: Purulent nasal drainage Neck: positive: Nml inspection, Thyroid nml, No JVD, Trachea midline. negative: Thyromegaly, Stiff neck, Tracheal deviation Respiratory: positive: Chest non-tender, No respiratory distress. negative: Wheezes, Rales, Rhonchi Cardiovascular: positive: No murmur, No gallop, Irregularly irregular, Tachycardia. negative: Bradycardia, Systolic murmur, Diastolic murmur Peripheral Pulses: 2+ Radial (R), 2+ Radial (L) Abdomen: positive: Non-tender, No organomegaly, Nml bowel sounds, No distention. negative: Tenderness, Guarding, Rebound Back: positive: Nml inspection. negative: CVA tenderness (R), CVA tenderness (L) Skin: positive: Color nml, No rash, Warm, Dry. negative: Cyanosis, Diaphoresis, Pallor Extremities: positive: Non-tender, Nml appearance. negative: Calf tenderness, Stan's sign/cords Neurologic/Psychiatric: negative: Weakness, Sensory loss, Facial droop - Lab Results Fish Bones: 11/24/19 13:08 11/24/19 13:08 Other Labs: Lab Results x24hrs 11/24/19 11/24/19 11/23/19 Range/Units 13:08 13:08 16:20 WBC 11.0 H (4.8-10.8) x10^3/uL RBC 3.09 L (4.70-6.10) 10^6/uL Hgb 9.2 L (14.0-18.0) g/dL Hct 29.7 L (42.0-52.0) % MCV 96.1 H (80.0-94.0) fL MCH 29.8 (27.0-31.0) pg MCHC 31.0 L (32.0-36.0) g/dL RDW 13.9 (12.0-15.0) % Plt Count 180 (130-450) 10^3/uL MPV 9.9 (7.4-11.4) fL Neut # (Auto) 8.9 H (1.5-6.6) 10^3/uL Lymph # (Auto) 0.8 L (1.5-3.5) 10^3/uL York # (Auto) 1.3 H (0.0-1.0) 10^3/uL Eos # (Auto) 0.0 (0.0-0.7) 10^3/uL Baso # (Auto) 0.0 (0.0-0.1) 10^3/uL Absolute Nucleated RBC 0.00 x10^3/uL Nucleated RBC % 0.0 /100WBC Sodium 143 (135-145) mmol/L Potassium 3.9 (3.5-5.0) mmol/L Chloride 112 H (101-111) mmol/L Carbon Dioxide 23 (21-32) mmol/L Anion Gap 8.0 (6-13) BUN 25 H (6-20) mg/dL Creatinine 1.2 (0.6-1.2) mg/dL Estimated GFR (MDRD) 57 L (>89) Glucose 143 H (70-100) mg/dL Calcium 8.0 L (8.5-10.3) mg/dL Urine Color YELLOW Urine Clarity HAZY (CLEAR) Urine pH 6.0 (5.0-7.5) PH Ur Specific Broughton 1.020 (1.002-1.030) Urine Protein TRACE (NEGATIVE) mg/dL Urine Glucose (UA) NEGATIVE (NEGATIVE) mg/dL Urine Ketones 15 H (NEGATIVE) mg/dL Urine Occult Blood SMALL H (NEGATIVE) Urine Nitrite NEGATIVE (NEGATIVE) Urine Bilirubin NEGATIVE (NEGATIVE) Urine Urobilinogen 0.2 (NORMAL) (NORMAL) E.U./dL Ur Leukocyte Esterase SMALL H (NEGATIVE) Urine RBC 0-5 (0-5) /HPF Urine WBC >25 H (0-3) /HPF Ur Squamous Epith Cells RARE Squamous (<= Few) Urine Bacteria Few (None Seen) /HPF Urine Culture Comments INDICATED Coronavirus (PCR) 11/23/19 Range/Units 13:00 WBC (4.8-10.8) x10^3/uL RBC (4.70-6.10) 10^6/uL Hgb (14.0-18.0) g/dL Hct (42.0-52.0) % MCV (80.0-94.0) fL MCH (27.0-31.0) pg MCHC (32.0-36.0) g/dL RDW (12.0-15.0) % Plt Count (130-450) 10^3/uL MPV (7.4-11.4) fL Neut # (Auto) (1.5-6.6) 10^3/uL Lymph # (Auto) (1.5-3.5) 10^3/uL York # (Auto) (0.0-1.0) 10^3/uL Eos # (Auto) (0.0-0.7) 10^3/uL Baso # (Auto) (0.0-0.1) 10^3/uL Absolute Nucleated RBC x10^3/uL Nucleated RBC % /100WBC Sodium (135-145) mmol/L Potassium (3.5-5.0) mmol/L Chloride (101-111) mmol/L Carbon Dioxide (21-32) mmol/L Anion Gap (6-13) BUN (6-20) mg/dL Creatinine (0.6-1.2) mg/dL Estimated GFR (MDRD) (>89) Glucose (70-100) mg/dL Calcium (8.5-10.3) mg/dL Urine Color Urine Clarity (CLEAR) Urine pH (5.0-7.5) PH Ur Specific Broughton (1.002-1.030) Urine Protein (NEGATIVE) mg/dL Urine Glucose (UA) (NEGATIVE) mg/dL Urine Ketones (NEGATIVE) mg/dL Urine Occult Blood (NEGATIVE) Urine Nitrite (NEGATIVE) Urine Bilirubin (NEGATIVE) Urine Urobilinogen (NORMAL) E.U./dL Ur Leukocyte Esterase (NEGATIVE) Urine RBC (0-5) /HPF Urine WBC (0-3) /HPF Ur Squamous Epith Cells (<= Few) Urine Bacteria (None Seen) /HPF Urine Culture Comments Coronavirus (PCR) NEGATIVE ABX Reporting Has patient been on IV antibiotics over the past 48 hours?: No Sepsis Event Note (H) - Evaluation Current Stage of Sepsis: Ruled out Assessment/Plan - Problem List (1) Femoral neck fracture Impression: 11/23 day one s/p surgery. pt has hx of disturbance behaviors secondary to advanced dementia, PT/OT is difficult to evaluation and treatment of pt. will continue pain meds, will discuss with pt's family for care plan, continue heparin as DVT prophylaxis. 11/22 pt's ECHO and EKG was unremarkable. pt refused to have lab test in night. after After the patient's daughter come to the hospital, patient agree to have lab test, lab test show unremarkable, patient will have surgery today to repair R hip.DVT prophylaxis will dependent on the surgeon, (2) Advanced dementia Conclusion/Plan: 11/23 Patient continue has disturbance in behavior, secondary to to his advanced dementia,Will discuss with the patient family for the care plan, continue nursing support. Patient has a home medication of Xanax, pt refused to take PO meds. order ativan 0.5 mg bid PRN 11/22 Patient has a history of behavioral disturbance a second to his advanced dementia, yesterday evening patient present combative behavior, we cannot draw the blood for the test.Discussed care plan with the patient's daughter, patient's daughter come to the hospital at patient's bedside. continue nursing support, (3) HTN (hypertension) Conclusion/Plan: 11/23 pt has elevated BP, but he refused to take meds, change to IV of Metoprolol and continue hydralazine IV PRN Patient has slightly elevated blood pressure. Continue home metoprolol, and hydralazine as needed, (4) Hx of coronary artery disease Conclusion/Plan: 11/23 change to aspirin to SR, continue tele monitor Patient has history of CAD, will order echo to check the patient before the surgery, continue patient home aspirin, continue home medication met oprolol,Continue classroom monitor patient, continue vital signs check the patient, (5) COPD (chronic obstructive pulmonary disease) Conclusion/Plan: Stable, continue breathing treatment as needed, (6) ARGELIA (acute kidney injury) Conclusion/Plan: 11/23 improved, continue gently IVF and lab monitor 11/22 Creatinine down to the 1.4 from 1.7 at his admission, improved, continue gently hydration, continue lab monitor Patient has increased creatinine from 1.4 to 1.7, patient is likely secondary to dehydration, hydration with intravenous IV fluids, continue lab test monitor patient, Qualifiers: Encounter type: initial encounter Fracture type: closed Laterality: right Qualified Code(s): S72.001A - Fracture of unspecified part of neck of right femur, initial encounter for closed fracture
[2019-11-24] MEDS: hydrALAZINE INJ 20 MG/ML VIAL IVP PRN (16:31)
[2019-11-24] MEDS: FAMOTIDINE 20 MG TABLET PO SCH (20:37)
[2019-11-25] MEDS: MORPHINE 2 MG/ML CARPUJECT IVP PRN ×2 (00:19→06:02)
[2019-11-25] MEDS: METOPROLOL 5 MG/5 ML VIAL IVP PRN ×2 (00:40→06:40)
[2019-11-25] MEDS: SODIUM CHLORIDE 0.9% 1,000 ML IV SCH ×2 (03:24→17:43)
[2019-11-25 05:54] LABS: BASOPHILS % (AUTO) 0.2 %; EOSINOPHILS % (AUTO) 0.3 %; HGB - HEMOGLOBIN 9.2 g/dL (14.0-18.0); LYMPHOCYTES % (AUTO) 9.9 %; MEAN CORPUSCULAR HEMOGLOBIN 31.1 pg (27.0-31.0); MEAN CORPUSCULAR HGB CONC 32.3 g/dL (32.0-36.0); MEAN CORPUSCULAR VOLUME 96.3 fL (80.0-94.0); MEAN PLATELET VOLUME 10.3 fL (7.4-11.4); MONOCYTES # (AUTO) 1.1 10^3/uL (0.0-1.0); MONOCYTES % (AUTO) 10.7 %; NEUTROPHILS # (AUTO) 8.1 10^3/uL (1.5-6.6); NEUTROPHILS % (AUTO) 78.4 %; PLT - PLATELET COUNT 178 10^3/uL (130-450); RED BLOOD COUNT 2.96 10^6/uL (4.70-6.10); RED CELL DISTRIBUTION WIDTH 13.8 % (12.0-15.0); WHITE BLOOD COUNT 10.4 x10^3/uL (4.8-10.8)
[2019-11-25 06:04] LABS: CALCIUM 8.2 mg/dL (8.5-10.3); CREATININE 1.1 mg/dL (0.6-1.2)
[2019-11-25] MEDS ORDERED: LORazepam 2 MG/ML VIAL IVP PRN (08:39)
[2019-11-25] MEDS ORDERED: MORPHINE 2 MG/ML CARPUJECT IVP PRN (09:00)
[2019-11-25] MEDS: LACTOBACILLUS RHAMNOSUS GG CAPSULE PO SCH (09:11)
[2019-11-25] MEDS: ALPRAZolam 0.25 MG TABLET PO SCH ×2 (09:11→21:49)
[2019-11-25] MEDS: METOPROLOL SUCCINATE 50 MG TABLET PO SCH (09:13)
[2019-11-25] MEDS: DULoxetine 30 MG CAPSULE PO SCH (09:13)
[2019-11-25] MEDS: QUEtiapine 25 MG TABLET PO SCH ×2 (09:13→21:50)
[2019-11-25] MEDS: cefTRIAXone 1 GM in SODIUM CHLORIDE 0.9% MINIBAG 100 ML IV SCH (09:16)
[2019-11-25] MEDS: HEPARIN 5,000 UNIT/ML VIAL SUBQ SCH ×2 (09:17→21:48)
[2019-11-25] MEDS: MULTIVITAMIN W/MINERALS TABLET PO SCH (09:18)
[2019-11-25] MEDS: SODIUM CHLORIDE FLUSH 0.9% 10 ML SYRINGE IVP SCH ×2 (09:18→17:44)
[2019-11-25] MEDS: ASPIRIN EC 81 MG TABLET PO SCH (09:18)
[2019-11-25] MEDS: polyethylene glycoL 3350 17 GM PACKET PO SCH (09:18)
--- NOTE | 2019-11-25 10:46 | PROVIDER PROGRESS NOTE ---
Assessment/Plan - Problem List (1) Femoral neck fracture Qualifiers: Encounter type: initial encounter Fracture type: closed Laterality: right Qualified Code(s): S72.001A - Fracture of unspecified part of neck of right femur, initial encounter for closed fracture Assessment/Plan: 11/24 today pt took meds, great job for nurse! will add Toradol for short term PRN for pain. because pt frequently took off tele box, and his HR is stable, per nurse's request, d/c of tele instead of closely monitor and vital signs check continue pain control, ortho followup, PT/OT 11/23 day one s/p surgery. pt has hx of disturbance behaviors secondary to advanced dementia, PT/OT is difficult to evaluation and treatment of pt. will continue pain meds, will discuss with pt's family for care plan, continue hep oapl as DVT prophylaxis. 11/22 pt's ECHO and EKG was unremarkable. pt refused to have lab test in night. after After the patient's daughter come to the hospital, patient agree to have lab test, lab test show unremarkable, patient will have surgery today to repair R hip.DVT prophylaxis will dependent on the surgeon, (2) Advanced dementia Conclusion/Plan: 11/24 Patient behaviorally is better today, patient took meds, continue supportive the patient, continue feeding the patient, patient's daughter yesterday to say she will come to the hospital, we will discuss with the patient's daughter for the care plan, 11/23 Patient continue has disturbance in behavior, secondary to to his advanced dementia,Will discuss with the patient family for the care plan, continue nursing support. Patient has a home medication of Xanax, pt refused to take PO meds. order ativan 0.5 mg bid PRN 11/22 Patient has a history of behavioral disturbance a second to his advanced dementia, yesterday evening patient present combative behavior, we cannot draw the blood for the test.Discussed care plan with the patient's daughter, patient's daughter come to the hospital at patient's bedside. continue nursing support, (3) HTN (hypertension) Conclusion/Plan: 11/24 Stable, continue home medication metoprolol, continue intravenous metopr olol PRN 11/23 pt has elevated BP, but he refused to take meds, change to IV of Metoprolol and continue hydralazine IV PRN Patient has slightly elevated blood pressure. Continue home metoprolol, and hydralazine as needed, (4) Hx of coronary artery disease Conclusion/Plan: 11/23 change to aspirin to SR, continue tele monitor Patient has history of CAD, will order echo to check the patient before the surgery, continue patient home aspirin, continue home medication metoprolol,Continue equipment monitor phototypesetting patient, continue vital signs check the patient, (5) COPD (chronic obstructive pulmonary disease) Conclusion/Plan: Stable, continue breathing treatment as needed, (6) ARGELIA (acute kidney injury) Conclusion/Plan: 11/24 Improved, because patient's drinks is less, continue intravenous IV fluids gently 11/23 improved, continue gently IVF and lab monitor 11/22 Creatinine down to the 1.4 from 1.7 at his admission, improved, continue gently hydration, continue lab monitor Patient has increased creatinine from 1.4 to 1.7, patient is likely secondary to dehydration, hydration with intravenous IV fluids, continue lab test monitor patient, (7)anorexia 11/24 Patient still has eating very poor, nursing reported patient only drank Ensure, pt continue loss of weight. I discussed with the situation with the patient's daughter on yesterday, the patient's daughter stated she would come in here the hospital, will be discussed with her for care plan (8)UTI UA analysis reveal positive proteus miralitis, which is sensitive to Rocephin. continue Rocephin. pt had antibiotic treatment when pt had antibiotics for surgery infection prophylaxes (9)palliative care Patient has palliative care in the before, Continue consult palliative care, will call palliative care. - Current Meds Current Meds: Current Medications Generic Name Dose Route Start Last Admin Trade Name Santos PRN Reason Stop Dose Admin Alprazolam 0.25 mg 11/22/19 21:00 11/25/19 09:11 Xanax PO 0.25 mg BID URIEL Administration Aspirin 81 mg 11/23/19 09:00 11/25/19 09:18 Ecotrin PO 81 mg DAILY URIEL Administration Duloxetine HCl 30 mg 11/23/19 09:00 11/25/19 09:13 Cymbalta PO 30 mg DAILY URIEL Administration Famotidine 20 mg 11/22/19 21:00 11/24/19 20:37 Pepcid PO Not Given QPM URIEL Heparin Sodium (Porcine) 5,000 unit 11/22/19 21:00 11/25/19 09:17 SUBQ 5,000 unit BID URIEL Administration Hydralazine HCl 10 mg 11/22/19 18:44 11/24/19 16:31 Apresoline Inj IVP 10 mg Q4H PRN Administration Hypertensive Emergency Sodium Chloride 1,000 mls @ 75 mls/hr 11/24/19 08:00 11/25/19 03:24 Normal Saline 0.9% IV 75 mls/hr .[id number] URIEL Administration Ceftriaxone Sodium 1 gm/ 100 mls @ 200 mls/hr 11/25/19 09:00 11/25/19 09:57 Sodium Chloride IV Infused DAILY URIEL Infusion Lactobacillus Rhamnosus 1 cap 11/24/19 09:00 11/25/19 09:11 Culturelle PO 1 cap DAILY URIEL Administration Metoprolol Succinate 100 mg 11/23/19 09:00 11/25/19 09:13 Toprol Xl PO 100 mg DAILY [facility] Administration Metoprolol Tartrate 5 mg 11/24/19 09:18 11/25/19 06:40 Lopressor Inj IVP 5 mg Q6H PRN Administration Tachycardia Multivitamins/Minerals 1 tab 11/24/19 08:00 11/25/19 09:18 Theragran M PO 1 tab DAILYWM URIEL Administration Polyethylene Glycol 17 gm 11/24/19 09:00 11/25/19 09:18 Miralax PO 17 gm DAILY URIEL Administration Quetiapine Fumarate 25 mg 11/22/19 21:00 11/25/19 09:13 Seroquel PO 25 mg BID URIEL Administration Sodium Chloride 10 ml 11/22/19 11:51 11/23/19 10:27 Normal Saline Flush 0.9% IVP 10 ml PRN PRN Administration NEEDED PER PROVIDER ORDERS Sodium Chloride 10 ml 11/22/19 17:00 11/25/19 09:18 Normal Saline Flush 0.9% IVP Not Given 0100,0900,1700 URIEL - Lab Result Fish Bone Diagrams: 11/25/19 05:47 11/25/19 05:47 - Additional Planning My Orders: My Active Orders 11/24/19 Lunch DIET [Soft Mechanical Diet] [DIET] 11/25/19 08:39 LORazepam INJ [Ativan Inj (Vial)] 0.25 mg IVP BID PRN 11/25/19 09:00 Morphine Inj (Carpuject) [Morphine (Carpuject)] 2 mg IVP Q3HR PRN cefTRIAXone [Rocephin] 1 gm Sodium Chloride 0.9% Minibag [Normal Saline 0.9% Minibag] 100 ml IV DAILY 11/25/19 10:34 Ketorolac Inj (15Mg) [Toradol Inj (15Mg)] 15 mg IVP Q6HR PRN 11/26/19 05:00 BMP - BASIC METABOLIC PANEL [CHEM] DAILYLAB CBC - COMP BLD CT W/AUTO DIFF [HEME] DAILYLAB MAGNESIUM [CHEM] DAILYLAB 11/27/19 05:00 BMP - BASIC METABOLIC PANEL [CHEM] DAILYLAB CBC - COMP BLD CT W/AUTO DIFF [HEME] DAILYLAB Subjective - Subjective Nursing Reports: Confused Objective Vital Signs: Vital Signs - 24 hr 11/24/19 11/24/19 11/24/19 11:15 11:35 11:40 Temperature 37.0 C Heart Rate [ 140 H 140 H Activity] Heart Rate [ 110 H Brachial] Heart Rate [ 124 H 124 H Supine] Respiratory 16 Rate Blood Pressure Blood Pressure 174/86 H 174/86 H [Activity] Blood Pressure [Left Brachial artery] Blood Pressure 146/80 H [Right Brachial artery] Blood Pressure 155/83 H 155/83 H [Supine] O2 Saturation 92 O2 Saturation [ 92 Supine] 11/24/19 11/24/19 11/24/19 16:00 16:31 16:36 Temperature 37.4 C Heart Rate [ Activity] Heart Rate [ 99 116 H Brachial] Heart Rate [ Supine] Respiratory 16 Rate Blood Pressure 188/96 H Blood Pressure [Activity] Blood Pressure 188/96 H 179/97 H [Left Brachial artery] Blood Pressure [Right Brachial artery] Blood Pressure [Supine] O2 Saturation 97 O2 Saturation [ Supine] 11/24/19 11/24/19 11/24/19 16:41 16:45 17:00 Temperature Heart Rate [ Activity] Heart Rate [ 111 H 116 H Brachial] Heart Rate [ Supine] Respiratory Rate Blood Pressure 159/82 H Blood Pressure [Activity] Blood Pressure 172/92 H 185/98 H [Left Brachial artery] Blood Pressure [Right Brachial artery] Blood Pressure [Supine] O2 Saturation O2 Saturation [ Supine] 11/24/19 11/24/19 11/24/19 17:01 17:10 17:15 Temperature Heart Rate [ Activity] Heart Rate [ 98 100 Brachial] Heart Rate [ Supine] Respiratory Rate Blood Pressure 153/83 H Blood Pressure [Activity] Blood Pressure 153/83 H 162/85 H [Left Brachial artery] Blood Pressure [Right Brachial artery] Blood Pressure [Supine] O2 Saturation O2 Saturation [ Supine] 11/24/19 11/24/19 11/24/19 17:20 17:30 17:35 Temperature Heart Rate [ Activity] Heart Rate [ 95 102 H Brachial] Heart Rate [ Supine] Respiratory Rate Blood Pressure 151/96 H Blood Pressure [Activity] Blood Pressure 160/85 H 151/96 H [Left Brachial artery] Blood Pressure [Right Brachial artery] Blood Pressure [Supine] O2 Saturation O2 Saturation [ Supine] 11/24/19 11/24/19 11/24/19 17:50 18:15 20:18 Temperature 37.4 C Heart Rate [ Activity] Heart Rate [ 98 108 H 110 H Brachial] Heart Rate [ Supine] Respiratory 16 Rate Blood Pressure Blood Pressure [Activity] Blood Pressure 162/88 H 147/74 H 159/90 H [Left Brachial artery] Blood Pressure [Right Brachial artery] Blood Pressure [Supine] O2 Saturation 95 O2 Saturation [ Supine] 11/25/19 11/25/19 11/25/19 00:00 00:40 00:45 Temperature 36.7 C Heart Rate [ Activity] Heart Rate [ 95 93 Brachial] Heart Rate [ Supine] Respiratory 18 Rate Blood Pressure 156/83 H Blood Pressure [Activity] Blood Pressure 163/83 H 140/78 H [Left Brachial artery] Blood Pressure [Right Brachial artery] Blood Pressure [Supine] O2 Saturation 95 O2 Saturation [ Supine] 11/25/19 11/25/19 11/25/19 00:50 00:55 01:00 Temperature Heart Rate [ Activity] Heart Rate [ 93 89 98 Brachial] Heart Rate [ Supine] Respiratory Rate Blood Pressure Blood Pressure [Activity] Blood Pressure [Left Brachial artery] Blood Pressure 153/77 H 128/81 H 157/81 H [Right Brachial artery] Blood Pressure [Supine] O2 Saturation O2 Saturation [ Supine] 11/25/19 11/25/19 11/25/19 01:15 01:23 01:30 Temperature Heart Rate [ Activity] Heart Rate [ 88 96 Brachial] Heart Rate [ Supine] Respiratory Rate Blood Pressure 161/79 H Blood Pressure [Activity] Blood Pressure [Left Brachial artery] Blood Pressure 161/79 H 155/84 H [Right Brachial artery] Blood Pressure [Supine] O2 Saturation O2 Saturation [ Supine] 11/25/19 11/25/19 11/25/19 01:45 05:37 06:40 Temperature 36.6 C Heart Rate [ Activity] Heart Rate [ 99 110 H Brachial] Heart Rate [ Supine] Respiratory 16 Rate Blood Pressure 170/84 H Blood Pressure [Activity] Blood Pressure [Left Brachial artery] Blood Pressure 155/90 H 157/84 H [Right Brachial artery] Blood Pressure [Supine] O2 Saturation 93 O2 Saturation [ Supine] 11/25/19 11/25/19 11/25/19 06:45 06:50 06:55 Temperature Heart Rate [ Activity] Heart Rate [ 87 84 86 Brachial] Heart Rate [ Supine] Respiratory Rate Blood Pressure Blood Pressure [Activity] Blood Pressure [Left Brachial artery] Blood Pressure 149/73 H 140/90 H 147/78 H [Right Brachial artery] Blood Pressure [Supine] O2 Saturation O2 Saturation [ Supine] 11/25/19 11/25/19 11/25/19 07:00 07:10 08:00 Temperature 37.2 C Heart Rate [ Activity] Heart Rate [ 85 88 Brachial] Heart Rate [ Supine] Respiratory Rate Blood Pressure 151/86 H Blood Pressure [Activity] Blood Pressure [Left Brachial artery] Blood Pressure 150/79 H 151/86 H [Right Brachial artery] Blood Pressure [Supine] O2 Saturation O2 Saturation [ Supine] Oxygen O2 Source Room air I&O (Last 24 Hrs): Intake and Output Totals x24h 11/23/19 11/24/19 11/25/19 23:59 23:59 23:59 Intake Total 2615 2240.00 813.75 Output Total 250 750 Balance 2365 1490.00 813.75 General: Alert, Mild distress HEENT: Atraumatic Neck: Supple Lymphatic: no adenopathy Neuro: Alert, Non Focal Cardiovascular: Normal S1, Normal S2 Respiratory: Chest non-tender, No respiratory distress, Breath sounds nml Abdomen: Normal bowel sounds, Soft Extremities: Normal pulses - Results Results: Laboratory Results WBC 10.4 x10^3/uL (4.8-10.8) 11/25/19 05:47 RBC 2.96 10^6/uL (4.70-6.10) L 11/25/19 05:47 Hgb 9.2 g/dL (14.0-18.0) L 11/25/19 05:47 Hct 28.5 % (42.0-52.0) L 11/25/19 05:47 MCV 96.3 fL (80.0-94.0) H 11/25/19 05:47 MCH 31.1 pg (27.0-31.0) H 11/25/19 05:47 MCHC 32.3 g/dL (32.0-36.0) 11/25/19 05:47 RDW 13.8 % (12.0-15.0) 11/25/19 05:47 Plt Count 178 10^3/uL (130-450) 11/25/19 05:47 MPV 10.3 fL (7.4-11.4) 11/25/19 05:47 Neut # (Auto) 8.1 10^3/uL (1.5-6.6) H 11/25/19 05:47 Lymph # (Auto) 1.0 10^3/uL (1.5-3.5) L 11/25/19 05:47 [place] # (Auto) 1.1 10^3/uL (0.0-1.0) H 11/25/19 05:47 Eos # (Auto) 0.0 10^3/uL (0.0-0.7) 11/25/19 05:47 Baso # (Auto) 0.0 10^3/uL (0.0-0.1) 11/25/19 05:47 Absolute Nucleated RBC 0.00 x10^3/uL 11/25/19 05:47 Nucleated RBC % 0.0 /100WBC 11/25/19 05:47 PT 15.5 secs (9.9-12.6) H 11/22/19 09:46 INR 1.4 (0.8-1.2) H 11/22/19 09:46 Sodium 144 mmol/L (135-145) 11/25/19 05:47 Potassium 3.7 mmol/L (3.5-5.0) 11/25/19 05:47 Chloride 115 mmol/L (101-111) H 11/25/19 05:47 Carbon Dioxide 21 mmol/L (21-32) 05/22/20 05:47 Anion Gap 8.0 (6-13) 11/25/19 05:47 BUN 21 mg/dL (6-20) H 11/25/19 05:47 Creatinine 1.1 mg/dL (0.6-1.2) 11/25/19 05:47 Estimated GFR (MDRD) 63 (>89) L 11/25/19 05:47 Glucose 108 mg/dL (70-100) H 11/25/19 05:47 Calcium 8.2 mg/dL (8.5-10.3) L 11/25/19 05:47 Magnesium 2.0 mg/dL (1.7-2.8) 11/23/19 10:37 Total Bilirubin 0.8 mg/dL (0.2-1.0) 11/22/19 09:46 AST 23 IU/L (10-42) 11/22/19 09:46 ALT 16 IU/L (10-60) 11/22/19 09:46 Alkaline Phosphatase 106 IU/L (42-121) 11/22/19 09:46 Troponin I High Sens 9.7 ng/L (2.3-19.7) 11/23/19 10:37 Total Protein 7.2 g/dL (6.7-8.2) 11/22/19 09:46 Albumin 3.4 g/dL (3.2-5.5) 11/22/19 09:46 Globulin 3.8 g/dL (2.1-4.2) 11/22/19 09:46 Albumin/Globulin Ratio 0.9 (1.0-2.2) L 11/22/19 09:46 Lipase 54 U/L (22-51) H 11/22/19 09:46 Urine Color YELLOW 11/23/19 16:20 Urine Clarity HAZY (CLEAR) 11/23/19 16:20 Urine pH 6.0 PH (5.0-7.5) 11/23/19 16:20 Ur Specific [place] 1.020 (1.002-1.030) 11/23/19 16:20 Urine Protein TRACE mg/dL (NEGATIVE) 11/23/19 16:20 Urine Glucose (UA) NEGATIVE mg/dL (NEGATIVE) 11/23/19 16:20 Urine Ketones 15 mg/dL (NEGATIVE) H 11/23/19 16:20 Urine Occult Blood SMALL (NEGATIVE) H 11/23/19 16:20 Urine Nitrite NEGATIVE (NEGATIVE) 11/23/19 16:20 Urine Bilirubin NEGATIVE (NEGATIVE) 11/23/19 16:20 Urine Urobilinogen 0.2 (NORMAL) E.U./dL (NORMAL) 11/23/19 16:20 Ur Leukocyte Esterase SMALL (NEGATIVE) H 11/23/19 16:20 Urine RBC 0-5 /HPF (0-5) 11/23/19 16:20 Urine WBC >25 /HPF (0-3) H 11/23/19 16:20 Ur Squamous Epith Cells RARE Squamous (<= Few) 11/23/19 16:20 Urine Bacteria Few /HPF (None Seen) 11/23/19 16:20 Urine Culture Comments INDICATED 11/23/19 16:20 Coronavirus (PCR) NEGATIVE 11/24/19 14:00 Blood Type B POSITIVE 11/22/19 16:52 Blood Type Recheck B POSITIVE 11/22/19 12:04 Antibody Screen NEGATIVE 11/22/19 16:52 Crossmatch IS Only See Detail 11/22/19 16:52 Sepsis Event Note (H) - Evaluation Current Stage of Sepsis: Ruled out ABX Reporting Has patient been on IV antibiotics over the past 48 hours?: Yes Current Medications - Current Medications Current Medications: Active Medications Acetaminophen (Tylenol) 650 mg PO Q4HR PRN PRN Reason: Pain 1 to 4 Acetaminophen (Tylenol) 650 - 975 mg PO Q4HR PRN PRN Reason: PAIN Al Hydroxide/Mg Hydroxide (Mylanta Plus) 20 ml PO TID PRN PRN Reason: Heartburn Albuterol () 2.5 mg INH RTQ4H PRN PRN Reason: Wheezing Albuterol/Ipratropium (Duoneb) 3 ml INH RTQID PRN PRN Reason: Shortness of Air/Wheezing Alprazolam (Xanax) 0.25 mg PO TID PRN PRN Reason: Anxiety Alprazolam (Xanax) 0.25 mg PO BID [facility] Last Admin: 11/25/19 09:11 Dose: 0.25 mg Aspirin (Ecotrin) 81 mg PO DAILY [facility] Last Admin: 11/25/19 09:18 Dose: 81 mg Bisacodyl (Dulcolax Supp) 10 mg MT DAILY PRN PRN Reason: Constipation Docusate Sodium (Colace 100mg Capsule) 100 mg PO BID PRN PRN Reason: Constipation Duloxetine HCl (Cymbalta) 30 mg PO DAILY [facility] Last Admin: 11/25/19 09:13 Dose: 30 mg Famotidine (Pepcid) 20 mg PO QPM [facility] Last Admin: 11/24/19 20:37 Dose: Not Given Guaifenesin (Robitussin Dm) 5 ml PO Q4H PRN PRN Reason: Cough Heparin Sodium (Porcine) () 5,000 unit SUBQ BID [facility] Last Admin: 11/25/19 09:17 Dose: 5,000 unit Hydralazine HCl (Apresoline Inj) 10 mg IVP Q4H PRN PRN Reason: Hypertensive Emergency Last Admin: 11/24/19 16:31 Dose: 10 mg Sodium Chloride (Normal Saline 0.9%) 1,000 mls @ 75 mls/hr IV .[id number] [facility] Last Admin: 11/25/19 03:24 Dose: 75 mls/hr Ceftriaxone Sodium 1 gm/ (Sodium Chloride) 100 mls @ 200 mls/hr IV DAILY [facility] Last Infusion: 11/25/19 09:57 Dose: Infused Ketorolac Tromethamine (Toradol Inj (15mg)) 15 mg IVP Q6H PRN PRN Reason: PAIN Stop: 11/30/19 10:59 Lactobacillus Rhamnosus (Culturelle) 1 cap PO DAILY [facility] Last Admin: 11/25/19 09:11 Dose: 1 cap Lorazepam (Ativan Inj (Vial)) 0.25 mg IVP BID PRN PRN Reason: Anxiety Magnesium Hydroxide (Milk Of Magnesia) 1,200 mg PO DAILY PRN PRN Reason: Constipation Metoprolol Succinate (Toprol Xl) 100 mg PO DAILY [facility] Last Admin: 11/25/19 09:13 Dose: 100 mg Metoprolol Tartrate (Lopressor Inj) 5 mg IVP Q6H PRN PRN Reason: Tachycardia Last Admin: 11/25/19 06:40 Dose: 5 mg Morphine Sulfate (Morphine (Carpuject)) 2 mg IVP Q3HR PRN PRN Reason: Pain 8 to 10 Multivitamins/Minerals (Theragran M) 1 tab PO DAILYWM [facility] Last Admin: 11/25/19 09:18 Dose: 1 tab Ondansetron HCl (Zofran Inj) 4 mg IVP Q6HR PRN PRN Reason: Nausea / Vomiting Polyethylene Glycol (Miralax) 17 gm PO DAILY [facility] Last Admin: 11/25/19 09:18 Dose: 17 gm Prochlorperazine Edisylate (Compazine Inj) 10 mg IVP Q6HR PRN PRN Reason: Nausea / Vomiting Quetiapine Fumarate (Seroquel) 25 mg PO BID [facility] Last Admin: 11/25/19 09:13 Dose: 25 mg Senna (Senokot) 17.2 mg PO Q12H PRN PRN Reason: Constipation Sodium Chloride (Normal Saline Flush 0.9%) 10 ml IVP PRN PRN PRN Reason: NEEDED PER PROVIDER ORDERS Last Admin: 11/23/19 10:27 Dose: 10 ml Sodium Chloride (Normal Saline Flush 0.9%) 10 ml IVP 0100,0900,1700 [facility] Last Admin: 11/25/19 09:18 Dose: Not Given DULoxetine [Cymbalta] 30 mg PO DAILY 09/04/17 Ipratropium/Albuterol Sulfate [Iprat-Albut 0.5-3(2.5) mg/3 ml] 1 amp INH Q6H PRN 09/04/17 ALPRAZolam [Alprazolam] 0.25 mg TID PRN 08/18/19 Albuterol Sulf [Ventolin Hfa Inhaler] 2 puffs INH Q4H PRN 08/18/19 Metoprolol Succinate 100 mg PO DAILY 08/18/19 ALPRAZolam [Alprazolam] 0.25 mg PO BID 09/29/19 Acetaminophen 650 mg PO Q6H PRN MDD NTE 3g/day 09/29/19 Aspirin [Aspirin EC] 81 mg PO DAILY 09/29/19 Bisacodyl Supp [Dulcolax Supp] 10 mg MT DAILY PRN MDD Given after MOM not effective 09/29/19 Guaifenesin/Dextromethorphan [Guaifenesin-Dm 100-10 mg/5 ml] 5 ml PO Q4H PRN 09/29/19 Loperamide HCl [Loperamide] 2 mg PO PRN PRN MDD 4mg then 2mg each loose stool 09/29/19 Mag Hydrox/Aluminum Hyd/Simeth [Antacid Plus Gas Relief Liquid] 20 ml PO TID PRN 09/29/19 Magnesium Hydroxide [Milk of Magnesia] 30 ml PO DAILY PRN MDD No BM in 3 days 09/29/19 QUEtiapine [SEROquel] 25 mg PO BID 09/29/19 Acetaminophen 650 mg PO DAILY 11/16/19 Pantoprazole Sodium 20 mg PO DAILY 11/22/19
--- NOTE | 2019-11-25 13:00 | CONSULTATION NOTE ---
Palliative Care Follow Up - Referral Referring Provider: GEOVANNI Lainez Time of Visit: [id number] Referral setting: Hospitalized patient Referral Reason: Anorexia/s/p femoral neck fracture repair/Advanced Care Planning/Dementia - Information Sources Records reviewed: Previous records reviewed History/Review of Systems obtained from: Family (daughterAlda), Nursing, Other (GEOVANNI Enriquez) Exam limitations: Clinical condition (Advanced dementia) - History of Present Illness Update Brief HPI Update: This is an 89-year-old gentleman who is seen in evaluation at the request of hospitalist service as the patient has been hospitalized due to an acute right femoral neck fracture due to a fall status post right hemiarthroplasty performed by Dr. Bazzi on 11/23/2019. The patient is known to this [facility] as he has been followed by palliative [facility] at [facility]. The patient's has a history of agitation due to dementia with behavioral disturbances as well as weight loss. He has preferences regarding the caregiving staff at his facility whom he is receptive to providing medication administration as well as hygiene care. Due to the patient's underlying dementia he has a history of frequent falls as he is not receptive to calling for assistance or use of an assistive device during ambulation. The patient sustained an unwitnessed fall at [facility] that resulted in him complaining of right sided pain in his groin, thigh, and knee and not wishing to weight-bear. He was seen in the ER for evaluation on 11/22/2019 and was diagnosed with a right femoral neck fracture and orthopedics was consulted. He underwent surgical repair by Dr. Bazzi on 11/23/2019. Since that time, the patient has been aggressive and agitated and overall is refusing medications while inpatient. He has been receptive to allowing medications when his daughter, Alda has been present. Today, the patient himself is also r eceptive to medication administrations with his male RN, Andrew. He has also had very minimal oral intake and has only consumed Ensure today. He did not consume meals yesterday. He is still receiving IV fluids and his IV access remains in place. He has had weight loss since July 2019 and weighed 144.2 pounds in July 2019. Presently it has been explored that the patient would be discharged to an SNF for rehabilitation. However, yesterday the patient would not participate with physical and Occupational Therapy and was agitated. Patient has a past medical history of hypertension, hyperlipidemia, peripheral vascular disease, dementia, coronary artery disease, AAA, angioplasty, COPD, frequent falls. Social History - Living Situation Living arrangement: Assisted living Support System: Patient grew up in [facility]. He is . His daughter is his D POA, Alda Martinez ([phone]). He also has a son, Rohit. The patient was a longtime drinker and smoker which he participated in until [facility]. Medications/Allergies - Medications Active Medication List: Active Medications Acetaminophen (Tylenol) 650 mg PO Q4HR PRN PRN Reason: Pain 1 to 4 Acetaminophen (Tylenol) 650 - 975 mg PO Q4HR PRN PRN Reason: PAIN Al Hydroxide/Mg Hydroxide (Mylanta Plus) 20 ml PO TID PRN PRN Reason: Heartburn Albuterol () 2.5 mg INH RTQ4H PRN PRN Reason: Wheezing Albuterol/Ipratropium (Duoneb) 3 ml INH RTQID PRN PRN Reason: Shortness of Air/Wheezing Alprazolam (Xanax) 0.25 mg PO TID PRN PRN Reason: Anxiety Alprazolam (Xanax) 0.25 mg PO BID [facility] Last Admin: 11/25/19 09:11 Dose: 0.25 mg Aspirin (Ecotrin) 81 mg PO DAILY [facility] Last Admin: 11/25/19 09:18 Dose: 81 mg Bisacodyl (Dulcolax Supp) 10 mg OH DAILY PRN PRN Reason: Constipation Docusate Sodium (Colace 100mg Capsule) 100 mg PO BID PRN PRN Reason: Constipation Duloxetine HCl (Cymbalta) 30 mg PO DAILY [facility] Last Admin: 11/25/19 09:13 Dose: 30 mg Famotidine (Pepcid) 20 mg PO QPM [facility] Last Admin: 11/24/19 20:37 Dose: Not Given Guaifenesin (Robitussin Dm) 5 ml PO Q4H PRN PRN Reason: Cough Heparin Sodium (Porcine) () 5,000 unit SUBQ BID [facility] Last Admin: 11/25/19 09:17 Dose: 5,000 unit Hydralazine HCl (Apresoline Inj) 10 mg IVP Q4H PRN PRN Reason: Hypertensive Emergency Last Admin: 11/24/19 16:31 Dose: 10 mg Sodium Chloride (Normal Saline 0.9%) 1,000 mls @ 75 mls/hr IV .[id number] [facility] Last Admin: 11/25/19 03:24 Dose: 75 mls/hr Ceftriaxone Sodium 1 gm/ (Sodium Chloride) 100 mls @ 200 mls/hr IV DAILY [facility] Last Infusion: 11/25/19 09:57 Dose: Infused Ketorolac Tromethamine (Toradol Inj (15mg)) 15 mg IVP Q6H PRN PRN Reason: PAIN Stop: 11/30/19 10:59 Lactobacillus Rhamnosus (Culturelle) 1 cap PO DAILY [facility] Last Admin: 11/25/19 09:11 Dose: 1 cap Lorazepam (Ativan Inj (Vial)) 0.25 mg IVP BID PRN PRN Reason: Anxiety Magnesium Hydroxide (Milk Of Magnesia) 1,200 mg PO DAILY PRN PRN Reason: Constipation Metoprolol Succinate (Toprol Xl) 100 mg PO DAILY [facility] Last Admin: 11/25/19 09:13 Dose: 100 mg Metoprolol Tartrate (Lopressor Inj) 5 mg IVP Q6H PRN PRN Reason: Tachycardia Last Admin: 11/25/19 06:40 Dose: 5 mg Morphine Sulfate (Morphine (Carpuject)) 2 mg IVP Q3HR PRN PRN Reason: Pain 8 to 10 Multivitamins/Minerals (Theragran M) 1 tab PO DAILYWM [facility] Last Admin: 11/25/19 09:18 Dose: 1 tab Ondansetron HCl (Zofran Inj) 4 mg IVP Q6HR PRN PRN Reason: Nausea / Vomiting Polyethylene Glycol (Miralax) 17 gm PO DAILY [facility] Last Admin: 11/25/19 09:18 Dose: 17 gm Prochlorperazine Edisylate (Compazine Inj) 10 mg IVP Q6HR PRN PRN Reason: Nausea / Vomiting Quetiapine Fumarate (Seroquel) 25 mg PO BID [facility] Last Admin: 11/25/19 09:13 Dose: 25 mg Senna (Senokot) 17.2 mg PO Q12H PRN PRN Reason: Constipation Sodium Chloride (Normal Saline Flush 0.9%) 10 ml IVP PRN PRN PRN Reason: NEEDED PER PROVIDER ORDERS Last Admin: 11/23/19 10:27 Dose: 10 ml Sodium Chloride (Normal Saline Flush 0.9%) 10 ml IVP 0100,0900,1700 URIEL Last Admin: 11/25/19 09:18 Dose: Not Given DULoxetine [Cymbalta] 30 mg PO DAILY 09/04/17 Ipratropium/Albuterol Sulfate [Iprat-Albut 0.5-3(2.5) mg/3 ml] 1 amp INH Q6H PRN 09/04/17 ALPRAZolam [Alprazolam] 0.25 mg TID PRN 08/18/19 Albuterol Sulf [Ventolin Hfa Inhaler] 2 puffs INH Q4H PRN 08/18/19 Metoprolol Succinate 100 mg PO DAILY 08/18/19 ALPRAZolam [Alprazolam] 0.25 mg PO BID 09/29/19 Acetaminophen 650 mg PO Q6H PRN MDD NTE 3g/day 09/29/19 Aspirin [Aspirin EC] 81 mg PO DAILY 09/29/19 Bisacodyl Supp [Dulcolax Supp] 10 mg OH DAILY PRN MDD Given after MOM not effective 09/29/19 Guaifenesin/Dextromethorphan [Guaifenesin-Dm 100-10 mg/5 ml] 5 ml PO Q4H PRN 09/29/19 Loperamide HCl [Loperamide] 2 mg PO PRN PRN MDD 4mg then 2mg each loose stool 09/29/19 Mag Hydrox/Aluminum Hyd/Simeth [Antacid Plus Gas Relief Liquid] 20 ml PO TID PRN 09/29/19 Magnesium Hydroxide [Milk of Magnesia] 30 ml PO DAILY PRN MDD No BM in 3 days 09/29/19 QUEtiapine [SEROquel] 25 mg PO BID 09/29/19 Acetaminophen 650 mg PO DAILY 11/16/19 Pantoprazole Sodium 20 mg PO DAILY 11/22/19 - Allergies Allergies/Adverse Reactions: Allergies Allergy/AdvReac Type Severity Reaction Status Date / Time Penicillins Allergy Unknown Verified 11/22/19 09:29 Sulfa (Sulfonamide Allergy Unknown Verified 11/22/19 09:29 Antibiotics) Review of Systems - Constitutional Constitutional: reports: Fatigue, Poor appetite, Weight loss. denies: Fever - Eyes Eyes: denies: Corrective lenses - Respiratory Respiratory: reports: Other (COPD) - Gastrointestinal Gastrointestinal: denies: Constipation - Integumentary Integumentary: reports: Other (bruising) - Neurological Neurological: reports: General weakness, Memory problems - Psychiatric Psychiatric: reports: Depression, Behavior disturbances - Hematologic/Lymphatic Hematologic/Lymphatic: reports: Recurrent infections (UTI) - All Other Systems All Other Systems: reports: Reviewed and negative (Patient is a poor historian due to dementia and is not participatory in examination today and only aroused to open his eyes for a few moments before falling back asleep.) Physical Exam - Vital Signs Vital Signs: Vital Signs x48h Temp Pulse Resp BP BP Pulse Ox 11/25/19 08:00 37.2 C 88 151/86 H 11/25/19 07:10 151/86 H 11/25/19 07:00 85 150/79 H 11/25/19 06:55 86 147/78 H 11/25/19 06:50 84 140/90 H 11/25/19 06:45 87 149/73 H 11/25/19 06:40 170/84 H 11/25/19 05:37 36.6 C 110 H 16 157/84 H 93 - Physical Exam General Appearance: positive: No acute distress, Moderate distress, Other (thin, frail elderly man sleeping in bed with his mouth open) ENT: positive: Other (dentures not in place; slightly dry mucous membranes; bilateral temporal wasting) Neck: positive: Trachea midline, Other (thin) Cardiovascular: positive: Regular rate & rhythm, No murmur Respiratory: positive: No respiratory distress. negative: Wheezes Abdomen: positive: Non-tender, Soft, Nml bowel sounds Skin: positive: Other (surgical dressing intact and in place to right hip; scattered bruising to upper extremities; PIV inplace to right forearm) Extremities: positive: No pedal edema. negative: Joint swelling Neurologic/Psychiatric: positive: Disoriented to place, Disoriented to time Palliative Care - POLST Patient has POLST: Yes POLST Status: DNR, Comfort Measures Anorexia: Severe (7-10), Weight loss Sleep: Variable sleep pattern Constipation: No, Managed Performance Status: At baseline the patient ambulates with assistance with contact-guard but refuses a walker and has a history of frequent falls. He has status post right femoral neck fracture repair. He has not been participatory in physical therapy services while inpatient. At baseline he is dependent on ADLs by caregiving staff at [facility]. - Palliative Care Discussion: The patient has a history of dementia with behavioral disturbances, particularly regarding agitation, aggression, and depression. He has established relat ionships with particular caregiving staff [facility] that he is more receptive to. He has been agitated and resistant to caregiving while inpatient given he is in an unfamiliar environment due to his underlying dementia. He has been receptive to care from male nursing staff and received his medications entirely today. Since his repair of his right femoral neck fracture he has very little oral intake. In discussion with the patient's daughter/D KATHYAAlda today she recognizes the significant decline that has occurred with the patient over the last several months. She had previously not been able to visualize his decline as the memory care facility has not allowed visitors due to the winkler virus pandemic for protection of the residents of the facility. His daughter perceives that the patient is presently suffering. Discussed returning to [facility] as this is a familiar environment, surroundings, and staff which would be of benefit for him. In petersen sitioning to [facility] offered transitioning with hospice services versus returning with home PT and OT services with the understanding that the patient has a overall poor prognosis and if with further decline would then need to transition to hospice services. Reviewed with limited oral intake if the patient would wish to pursue an aggressive interventions such as feeding tube placement and the daughter declines this intervention. The daughter/D SHERWIN wishes to focus on comfort and have the patient in familiar surroundings and is agreeable after lengthy discussion regarding pros versus cons of hospice services to have the patient be admitted to hospice services and return to [facility]. Results - Lab Results Fish Bones: 11/25/19 05:47 11/25/19 05:47 Lab and Imaging Results: Lab Results x24hrs 11/25/19 11/25/19 11/24/19 Range/Units 05:47 05:47 14:00 WBC 10.4 (4.8-10.8) x10^3/uL RBC 2.96 L (4.70-6.10) 10^6/uL Hgb 9.2 L (14.0-18.0) g/dL Hct 28.5 L (42.0-52.0) % MCV 96.3 H (80.0-94.0) fL MCH 31.1 H (27.0-31.0) pg MCHC 32.3 (32.0-36.0) g/dL RDW 13.8 (12.0-15.0) % Plt Count 178 (130-450) 10^3/uL MPV 10.3 (7.4-11.4) fL Neut # (Auto) 8.1 H (1.5-6.6) 10^3/uL Lymph # (Auto) 1.0 L (1.5-3.5) 10^3/uL [place] # (Auto) 1.1 H (0.0-1.0) 10^3/uL Eos # (Auto) 0.0 (0.0-0.7) 10^3/uL Baso # (Auto) 0.0 (0.0-0.1) 10^3/uL Absolute Nucleated RBC 0.00 x10^3/uL Nucleated RBC % 0.0 /100WBC Sodium 144 (135-145) mmol/L Potassium 3.7 (3.5-5.0) mmol/L Chloride 115 H (101-111) mmol/L Carbon Dioxide 21 (21-32) mmol/L Anion Gap 8.0 (6-13) BUN 21 H (6-20) mg/dL Creatinine 1.1 (0.6-1.2) mg/dL Estimated GFR (MDRD) 63 L (>89) Glucose 108 H (70-100) mg/dL Calcium 8.2 L (8.5-10.3) mg/dL Coronavirus (PCR) NEGATIVE 11/24/19 11/24/19 Range/Units 13:08 13:08 WBC 11.0 H (4.8-10.8) x10^3/uL RBC 3.09 L (4.70-6.10) 10^6/uL Hgb 9.2 L (14.0-18.0) g/dL Hct 29.7 L (42.0-52.0) % MCV 96.1 H (80.0-94.0) fL MCH 29.8 (27.0-31.0) pg MCHC 31.0 L (32.0-36.0) g/dL RDW 13.9 (12.0-15.0) % Plt Count 180 (130-450) 10^3/uL MPV 9.9 (7.4-11.4) fL Neut # (Auto) 8.9 H (1.5-6.6) 10^3/uL Lymph # (Auto) 0.8 L (1.5-3.5) 10^3/uL [place] # (Auto) 1.3 H (0.0-1.0) 10^3/uL Eos # (Auto) 0.0 (0.0-0.7) 10^3/uL Baso # (Auto) 0.0 (0.0-0.1) 10^3/uL Absolute Nucleated RBC 0.00 x10^3/uL Nucleated RBC % 0.0 /100WBC Sodium 143 (135-145) mmol/L Potassium 3.9 (3.5-5.0) mmol/L Chloride 112 H (101-111) mmol/L Carbon Dioxide 23 (21-32) mmol/L Anion Gap 8.0 (6-13) BUN 25 H (6-20) mg/dL Creatinine 1.2 (0.6-1.2) mg/dL Estimated GFR (MDRD) 57 L (>89) Glucose 143 H (70-100) mg/dL Calcium 8.0 L (8.5-10.3) mg/dL Coronavirus (PCR) Impression and Recommendations - Palliative Care Impression: This is a frail 89-year-old gentleman with a history of advanced dementia with b ehavioral disturbances, depression, history of frequent falls status post right femoral neck fracture and repair. He has had increased weight loss with anorexia indicative of progression of his advanced dementia. Patient's daughter/D POA wishes to focus on comfort and in agreement to transition to hospice services with a goal to return to [facility]. Recommendations/Counseling Done: 1.Right femoral neck fracture s/p repair by Dr. Bazzi on 11/23/2019. Patient is a poor rehab candidate given his inability to follow instructions, impulsetivity and poor cooperation with rehabilitation services while inpatient at present. Appears comfortable on present examination without complaints of pain. 2. Weight loss with protein calorie malnutrition. Due to advancement of patient's dementia. Presently consuming Ensure. Daughter/DPOA declines intervention with PEG placement with understanding that placement would not slow the disease progression or alter the course of dementia. Continue to offer and encourage pleasurable foods and follow patient's cueing regarding his wants and a continued decline is expected. Due to decline and poor prognosis will refer to hospice services to provide support and return to [facility]. 3. Dementia with behavioral disturbances. Patient continues to have episodes of agitation. Recommended while inpatient for male caregiving staff if possible as patient is more receptive to a male for care. Continue quetiapine 25 mg twice daily for anxiety agitation as well as a alprazolam 0.25 mg twice daily and as needed. Reviewed with daughter regarding disease progression of dementia and given goals to focus on comfort will transition to hospice services. 4. Advanced Care Planning. Patient has a pulsed in place as DNR with comfort measures. Reviewed goals of care with daughter/Vaughn Lizama who wishes for her father to be comfortable. Recognizes significant decline over the last few months and wishes the patient to return to his familiar environment with hospice services in place for added support. Communicated with hospitalist staff as well as nursing and social work regarding daughter/Vaughn Lizama's desire for the patient to transition to hospice services and the staff is to coordinate with [facility] regarding discharge. Time Spent: Total time spent 60 with greater than 50% of time spent in counseling and coordination of care with daughter/DPOA, medical team; review with daughter regarding escalation vs de-escalation of care; hospice philosophy; supportive listening provided with daughter/DPOA; examination of the patient; and reviewing medical records. Disclaimer: The chart note was formulated using voice recognition technology and unfortunately sound alike errors may occur.
--- NOTE | 2019-11-25 16:58 | PROVIDER PROGRESS NOTE ---
Subjective - Prog Note Date Prog Note Date: 11/25/19 Prog Note Time: 16:56 - Subjective Pt reports feeling: Improved (Less pain. Sleeping comfortably) Objective - Vital Signs/Intake & Output Vital Signs: Vital Signs x48h Temp Pulse Resp BP Pulse Ox 11/25/19 16:00 37.1 C 82 18 147/72 H 94 Intake & Output: Intake & Output 11/22/19 11/23/19 11/24/19 11/25/19 23:59 23:59 23:59 23:59 Intake Total 1000 2615 2240.00 1263.75 Output Total 250 750 Balance 1000 2365 1490.00 1263.75 - Lab Results Fish Bones: 11/25/19 05:47 11/25/19 05:47 Other Labs: Lab Results x24hrs 11/25/19 11/25/19 11/24/19 Range/Units 05:47 05:47 14:00 WBC 10.4 (4.8-10.8) x10^3/uL RBC 2.96 L (4.70-6.10) 10^6/uL Hgb 9.2 L (14.0-18.0) g/dL Hct 28.5 L (42.0-52.0) % MCV 96.3 H (80.0-94.0) fL MCH 31.1 H (27.0-31.0) pg MCHC 32.3 (32.0-36.0) g/dL RDW 13.8 (12.0-15.0) % Plt Count 178 (130-450) 10^3/uL MPV 10.3 (7.4-11.4) fL Neut # (Auto) 8.1 H (1.5-6.6) 10^3/uL Lymph # (Auto) 1.0 L (1.5-3.5) 10^3/uL [place] # (Auto) 1.1 H (0.0-1.0) 10^3/uL Eos # (Auto) 0.0 (0.0-0.7) 10^3/uL Baso # (Auto) 0.0 (0.0-0.1) 10^3/uL Absolute Nucleated RBC 0.00 x10^3/uL Nucleated RBC % 0.0 /100WBC Sodium 144 (135-145) mmol/L Potassium 3.7 (3.5-5.0) mmol/L Chloride 115 H (101-111) mmol/L Carbon Dioxide 21 (21-32) mmol/L Anion Gap 8.0 (6-13) BUN 21 H (6-20) mg/dL Creatinine 1.1 (0.6-1.2) mg/dL Estimated GFR (MDRD) 63 L (>89) Glucose 108 H (70-100) mg/dL Calcium 8.2 L (8.5-10.3) mg/dL Coronavirus (PCR) NEGATIVE Crossmatch IS Only 11/22/19 Range/Units 16:52 WBC (4.8-10.8) x10^3/uL RBC (4.70-6.10) 10^6/uL Hgb (14.0-18.0) g/dL Hct (42.0-52.0) % MCV (80.0-94.0) fL MCH (27.0-31.0) pg MCHC (32.0-36.0) g/dL RDW (12.0-15.0) % Plt Count (130-450) 10^3/uL MPV (7.4-11.4) fL Neut # (Auto) (1.5-6.6) 10^3/uL Lymph # (Auto) (1.5-3.5) 10^3/uL [place] # (Auto) (0.0-1.0) 10^3/uL Eos # (Auto) (0.0-0.7) 10^3/uL Baso # (Auto) (0.0-0.1) 10^3/uL Absolute Nucleated RBC x10^3/uL Nucleated RBC % /100WBC Sodium (135-145) mmol/L Potassium (3.5-5.0) mmol/L Chloride (101-111) mmol/L Carbon Dioxide (21-32) mmol/L Anion Gap (6-13) BUN (6-20) mg/dL Creatinine (0.6-1.2) mg/dL Estimated GFR (MDRD) (>89) Glucose (70-100) mg/dL Calcium (8.5-10.3) mg/dL Coronavirus (PCR) Crossmatch IS Only See Detail - Other Results/Comments Other Results/Comments: EXAM: Dressing intact. Moves toes ok. Sensation intact. Mild hip pain with hip motion Sepsis Event Note (H) - Evaluation Current Stage of Sepsis: Ruled out Assessment/Plan - Problem List (1) Femoral neck fracture Impression: Stable post op PLAN: Mobilize as tolerated. To SNF/Home in AM. Follow up in office as needed in 2-3 weeks for dwight out. Qualifiers: Encounter type: initial encounter Fracture type: closed Laterality: right Qualified Code(s): S72.001A - Fracture of unspecified part of neck of right femur, initial encounter for closed fracture
[2019-11-25] MEDS: KETOROLAC 15 MG/ML VIAL IVP PRN (17:44)
[2019-11-25] MEDS: FAMOTIDINE 20 MG TABLET PO SCH (21:50)
[2019-11-26] MEDS: SODIUM CHLORIDE FLUSH 0.9% 10 ML SYRINGE IVP SCH ×2 (01:24→08:14)
[2019-11-26] MEDS: KETOROLAC 15 MG/ML VIAL IVP PRN (03:21)
[2019-11-26 06:12] LABS: BASOPHILS % (AUTO) 0.1 %; EOSINOPHILS # (AUTO) 0.2 10^3/uL (0.0-0.7); EOSINOPHILS % (AUTO) 3.3 %; HGB - HEMOGLOBIN 8.5 g/dL (14.0-18.0); LYMPHOCYTES # (AUTO) 0.9 10^3/uL (1.5-3.5); LYMPHOCYTES % (AUTO) 12.9 %; MEAN CORPUSCULAR HEMOGLOBIN 30.1 pg (27.0-31.0); MEAN CORPUSCULAR VOLUME 97.2 fL (80.0-94.0); MEAN PLATELET VOLUME 9.5 fL (7.4-11.4); MONOCYTES # (AUTO) 0.6 10^3/uL (0.0-1.0); MONOCYTES % (AUTO) 8.2 %; NEUTROPHILS # (AUTO) 5.3 10^3/uL (1.5-6.6); NEUTROPHILS % (AUTO) 75.1 %; PLT - PLATELET COUNT 167 10^3/uL (130-450); RED BLOOD COUNT 2.82 10^6/uL (4.70-6.10); RED CELL DISTRIBUTION WIDTH 13.9 % (12.0-15.0)
[2019-11-26 06:35] LABS: CALCIUM 8.1 mg/dL (8.5-10.3); CREATININE 1.4 mg/dL (0.6-1.2); MAGNESIUM 2.1 mg/dL (1.7-2.8)
[2019-11-26] MEDS: ASPIRIN EC 81 MG TABLET PO SCH (08:13)
[2019-11-26] MEDS: DULoxetine 30 MG CAPSULE PO SCH (08:13)
[2019-11-26] MEDS: polyethylene glycoL 3350 17 GM PACKET PO SCH (08:13)
[2019-11-26] MEDS: QUEtiapine 25 MG TABLET PO SCH (08:13)
[2019-11-26] MEDS: LACTOBACILLUS RHAMNOSUS GG CAPSULE PO SCH (08:13)
[2019-11-26] MEDS: cefTRIAXone 1 GM in SODIUM CHLORIDE 0.9% MINIBAG 100 ML IV SCH (08:13)
[2019-11-26] MEDS: MULTIVITAMIN W/MINERALS TABLET PO SCH (08:14)
[2019-11-26] MEDS: HEPARIN 5,000 UNIT/ML VIAL SUBQ SCH (08:14)
[2019-11-26] MEDS: ALPRAZolam 0.25 MG TABLET PO SCH (08:14)
[2019-11-26] MEDS: METOPROLOL SUCCINATE 50 MG TABLET PO SCH (08:14)
[2019-11-26] MEDS ORDERED: DOCUSATE SODIUM 250 MG CAPSULE PO SCH (09:00)
[2019-11-26] MEDS ORDERED: SENNA 8.6 MG TABLET PO SCH (09:00)
--- NOTE | 2019-11-26 09:26 | Discharge Plan ---
"Discharge Plan for SNF / [facility] - Discharge Plan And Transition Orders Problem Reviewed?: Yes Disposition: 03 SNF DC/Xfer Condition: Poor Allergies and Adverse Reactions: Allergies Allergy/AdvReac Type Severity Reaction Status Date / Time Penicillins Allergy Unknown Verified 11/22/19 09:29 Sulfa (Sulfonamide Allergy Unknown Verified 11/22/19 09:29 Antibiotics) Health Concerns: Admitted with a hip fracture after a fall and underwent successful orthopedic surgery. He has advanced dementia and cannot participate with PT and OT, and gets easily agitated. He has declined rapidly recently, is being followed by a Palliative Care [facility] SELECTOR, who saw the patient here. His daughter, the DPOA has requested that the patient return to his previous [facility] location [facility], with comfort care and Hospice Care. Plan of Treatment: As above. Care Goals: Comfort Care. Assessment: Arrangements were made by his Palliative Care [facility]ER SELECTOR and the daughter, his DPOA. - SNF / DETENTION Transition Orders Admit to (Facility): [facility] Under the care of (Name): PCP until Hospice assumes care on Thu11/28/19 Discharge Diagnosis: (1) Femoral neck fracture, S/P orthopedic surgery (2) Advanced dementia with behavioral disturbances (3) HTN (hypertension) (4) Hx of coronary artery disease (5) COPD (chronic obstructive pulmonary disease) (6) ARGELIA (acute kidney injury), improved (7) Anorexia (8) Proteus mirabilis UTI (9)Code status: DNR Medicare Certification Statement: I certify that [facility] care is medically necessary on a continuing basis for any of the conditions for which she/he is receiving care during hospitalization. Notify PCP of admission and forward orders to primary provider for signature. Other Notification Orders: Call PCP immediately if patient develops dyspnea, chest pain/tightness or edema. House Bowel Program: Yes Additional Bowel Program Orders: If no BM after 2 days, nurse may give M.O.M. 30ml PO PRN and/or ducolax Supp 1 DC and/or SHASTA 250mg P.O., and/or senna 1-2 tabs PO. On day 3 nurse may give repeat above order until residents constipation is resolved. Annual Influenza Vaccine (between Mar 06 and October 03): Yes Two-step PPD per [facility] [phone] or approved exception documents: Yes Oxygen Orders: As needed for airhunger, by Hospice Medication Orders: PLEASE REFER TO THE DISCHARGE MEDICATION LIST. Insulin Orders?: No - Medications New Prescriptions: Haloperidol Oral Soln [Haldol Oral Soln] 2 mg PO Q4H #30 ml Morphine Sulfate [Morphine Sulf Oral (Roxanol)] 10 mg PO Q1H PRN #30 ml PRN Reason: Pain/Dyspnea Ondansetron Odt [Zofran Odt] 4 mg TL Q6H PRN #10 tablet PRN Reason: Nausea / Vomiting - Diet Type: Geriatric (mechanical soft diet, and offer 1 Ensure daily) [facility] Liquids: Thin Supplements: Ensure May have monthly special meal: Yes - Therapies | Activity Activity: Activity as Tolerated Follow Up: Hospice for end-of-Life care is planned."
--- NOTE | 2019-11-26 13:25 | DISCHARGE SUMMARY ---
"Discharge Summary Admit Date: 11/22/19 Discharge Date: 11/26/19 Discharging Provider: Dr Ketty Woo Primary Care Provider: Dr Ke Aguayo Code Status: Do Not Attempt Resuscitation Condition at Discharge: Poor Discharge Disposition: 03 SNF DC/Xfer - HPI History of Present Illness: From the admission H&P of Meliton Enriquez NP: Mr. Camacho is a 89-yrs old male with a past medical history of hypertension, hyperlipidemia, peripheral vascular disease, CHF, coronary artery disease, AAA, angioplasty, advanced dementia with disturbance behaviours, COPD, frequent falls, who present ER for fall and right hip pain. pt was medicated by ER and fall in sleep. Also pt has hx of advanced dementia, could not provide medical history. I tried to reach pt's family Priyank Sierra at [phone] twice and left message but could not get call back. Per ER's report, Pt brought in by EMS for Righ hip pain. pt presented ER with right Hip tender on palpitation, and wincing in pain. Pt hx of dementia. Pt had unwitnessed fall Thursday at [facility], Staff in [facility] reported they heard he yell out. EMS reports [facility] staff does not believe pt lost of conscience when he had a fall. Xray of right hip reveals acute fracture of the right femoral neck. Orthopedics surgeon was called by ER, plan to have surgery on tomorrow. Pt had PLOST which state DNR/DNI and comfort-focus measure. - CONSULTS | PROCEDURES Consultations: Dr Rodríguez Bazzi, Orthopedics. Jaclyn Varma NP, Palliative Care. Procedures: Cementless right bi-polar hip hemiarthoplasty on 11/23/19 - HOSPITAL COURSE Hospital Course: (1) Femoral neck fracture, right, S/P orthopedic surgery His family wanted the hip repaired and gave consent. He underwent successful orthopedic surgery the next day. He could not participate in PT post-op due to his dementia with behavior problems (agitation). (2) Advanced dementia His Palliative Care provider, Jaclyn Varma NP was consulted. The daughter/DPOA wished to focus on comfort and have the patient in familiar surroundings and was agreeable after lengthy discussion with Palliative Care, to begin hospice services and to have the patient return to [facility] memory care. (3) Dementia with behavioral disturbances He did swing out and refused some blood draws and certain caregivers. (3) HTN (hypertension) He was kept on his usual BP meds. (4) Hx of coronary artery disease He had a pre-op Echo which showed normal LV and RV function, mild tricuspid regurgitation and mild pulmonary HTN with PA pressure of 42 mmHg, and he was deemed to be low risk for surgery. There were no cardio-pulmonary sx while here. (5) History of COPD He was kept on his home inhalers and had no COPD exacerbation this admission. (6) ARGELIA (acute kidney injury), improved His admission creat of 1.7 , improved to 1.1 with iv hydration, but was 1.4 at discharge. (7) Anorexia There were many episodes of refusing to eat, which was considered part of his behavioral disturbance due to dementia. (8) UTI due to Proteus mirabilis His admission U/A was abnormal and he was on empiric iv Ceftriaxone. The urine culture grew Proteus mirabilis. He was not discharged on antibiotics since comfort care was the plan. - ALLERGIES Allergies/Adverse Reactions: Allergies Allergy/AdvReac Type Severity Reaction Status Date / Time Penicillins Allergy Unknown Verified 11/22/19 09:29 Sulfa (Sulfonamide Allergy Unknown Verified 11/22/19 09:29 Antibiotics) - MEDICATIONS Home Medications: Ambulatory Orders Medication Instructions Recorded Confirmed DULoxetine [Cymbalta] 30 mg PO DAILY 09/04/17 11/22/19 Ipratropium/Albuterol Sulfate 1 amp INH Q6H PRN 09/04/17 11/22/19 [Iprat-Albut 0.5-3(2.5) mg/3 ml] ALPRAZolam [Alprazolam] 0.25 mg TID PRN 08/18/19 11/22/19 Albuterol Sulf [Ventolin Hfa 2 puffs INH Q4H PRN 08/18/19 11/22/19 Inhaler] Metoprolol Succinate 100 mg PO DAILY 08/18/19 11/22/19 ALPRAZolam [Alprazolam] 0.25 mg PO BID 09/29/19 11/22/19 Acetaminophen 650 mg PO Q6H PRN MDD NTE 3g/day 09/29/19 11/22/19 Aspirin [Aspirin EC] 81 mg PO DAILY 09/29/19 11/22/19 Bisacodyl Supp [Dulcolax Supp] 10 mg [place] DAILY PRN MDD Given after 09/29/19 11/22/19 MOM not effective Guaifenesin/Dextromethorphan 5 ml PO Q4H PRN 09/29/19 11/22/19 [Guaifenesin-Dm 100-10 mg/5 ml] Loperamide HCl [Loperamide] 2 mg PO PRN PRN MDD 4mg then 2mg 09/29/19 11/22/19 each loose stool Mag Hydrox/Aluminum Hyd/Simeth 20 ml PO TID PRN 09/29/19 11/22/19 [Antacid Plus Gas Relief Liquid] Magnesium Hydroxide [Milk of 30 ml PO DAILY PRN MDD No BM in 3 09/29/19 11/22/19 Magnesia] days QUEtiapine [SEROquel] 25 mg PO BID 09/29/19 11/22/19 Acetaminophen 650 mg PO DAILY 11/16/19 11/22/19 Pantoprazole Sodium 20 mg PO DAILY 11/22/19 11/22/19 Haloperidol Oral Soln [Haldol Oral 2 mg PO Q4H #30 ml 11/26/19 Soln] Morphine Sulfate [Morphine Sulf 10 mg PO Q1H PRN #30 ml 11/26/19 Oral (Roxanol)] Ondansetron Odt [Zofran Odt] 4 mg TL Q6H PRN #10 tablet 11/26/19 - PHYSICAL EXAM AT DISCHARGE General Appearance: positive: No acute distress, Alert Eyes Bilateral: positive: Normal inspection, EOMI ENT: positive: No signs of dehydration Neck: positive: Nml inspection Respiratory: positive: No respiratory distress Cardiovascular: positive: Regular rate & rhythm Abdomen: positive: No distention Skin: positive: Color nml Extremities: positive: No pedal edema Neurologic/Psychiatric: positive: Disoriented to person, Disoriented to place, Disoriented to time - LABS Result Diagrams: 11/26/19 06:00 11/26/19 06:00 - DIAGNOSTIC IMAGING Diagnostic Imaging Results: Final report reviewed - FOLLOW UP Follow Up: Hospice Care for comfort and end-of-life. - TIME SPENT Time Spent in Discharge (Minutes): 60"
[2019-11-26] MEDS: SODIUM CHLORIDE 0.9% 1,000 ML IV SCH (14:53)
[2019-11-26 16:41] VITALS: BP 165/95
== END 2019-11-26 16:30 | disposition hospice, home (50) | DRG 470 ==
LOC: EDUNIT# → ED 09:09 → MS2 11:51
PROVIDERS: ADMIT Nurse Practitioner Gerontology; ATTEND Internal Medicine
PROC: 0SRR01A Replacement of Right Hip Joint, Femoral Surface with Metal Synthetic Substitute, Uncemented, Open Approach (ICD-10-PCS; principal; 2019-11-23 10:30)
DX: S72.001A Fracture of unspecified part of neck of right femur, initial encounter for closed fracture (principal); F03.91 Unspecified dementia, unspecified severity, with behavioral disturbance; N17.9 Acute kidney failure, unspecified; N39.0 Urinary tract infection, site not specified; F03.90 Unspecified dementia, unspecified severity, without behavioral disturbance, psychotic disturbance, mood disturbance, and anxiety; I11.0 Hypertensive heart disease with heart failure; I50.9 Heart failure, unspecified; E78.00 Pure hypercholesterolemia, unspecified; E46 Unspecified protein-calorie malnutrition; W19.XXXA Unspecified fall, initial encounter; Y92.099 Unspecified place in other non-institutional residence as the place of occurrence of the external cause; G62.9 Polyneuropathy, unspecified; Z91.81 History of falling; E86.0 Dehydration; J44.9 Chronic obstructive pulmonary disease, unspecified; I10 Essential (primary) hypertension; I25.10 Atherosclerotic heart disease of native coronary artery without angina pectoris; E78.5 Hyperlipidemia, unspecified; I71.4 Abdominal aortic aneurysm, without rupture; I73.9 Peripheral vascular disease, unspecified; K21.9 Gastro-esophageal reflux disease without esophagitis; B96.4 Proteus (mirabilis) (morganii) as the cause of diseases classified elsewhere; F32.9 Major depressive disorder, single episode, unspecified; Z68.22 Body mass index [BMI] 22.0-22.9, adult; Z66 Do not resuscitate; Z51.5 Encounter for palliative care; Z53.20 Procedure and treatment not carried out because of patient's decision for unspecified reasons; Z03.818 Encounter for observation for suspected exposure to other biological agents ruled out; Z79.51 Long term (current) use of inhaled steroids; Z79.82 Long term (current) use of aspirin; Z79.899 Other long term (current) drug therapy; Z87.891 Personal history of nicotine dependence; Z95.828 Presence of other vascular implants and grafts
CPT/HCPCS: 36415; 71045; 73501; 73502; 80048; 80053; 81001; 83690; 83735; 84484; 85025; 85610; 86850; 86900; 86901; 86920; 87077; 87086; 87181; 93005; 93306; 96374; 96375; 97162; 97167; 99233; 99285; A9270; J2060; J7120; U0004; 81599

== ENCOUNTER 2019-11-26 16:43 | Outpatient (CLI) | payer MEDICARE, BC | END 2019-11-26 16:44 | disposition home or self-care (01) | LOC: EMS 16:43 | PROVIDERS: ATTEND Surgery | DX: F03.90 Unspecified dementia, unspecified severity, without behavioral disturbance, psychotic disturbance, mood disturbance, and anxiety (principal); Z74.01 Bed confinement status | CPT/HCPCS: A0425; A0428 ==